=== PATIENT | female | born 1945 | race Caucasian/White ===

== ENCOUNTER → 2018-05-20 | Outpatient (CLI) | payer MEDICARE ==
--- NOTE | 2018-05-20 13:28 | US ---
EXAMINATION TYPE: US kidneys/renal and bladder DATE OF EXAM: 05/20/2018 COMPARISON: NONE CLINICAL HISTORY: N28.89 Disorder of Kidney. EXAM MEASUREMENTS: Right Kidney: 12.6 x 5.0 x 5.0 cm Left Kidney: 11.8 x 5.6 x 4.9 cm Patient of large body habitus. Right Kidney: echogenic foci noted, multiple small calculi Left Kidney: No hydronephrosis or masses seen Bladder: wnl, somewhat limited views due to large panis There is no evidence for hydronephrosis at this point in time. No nephrolithiasis is seen. No juvencio s are identified. The urinary bladder is anechoic. IMPRESSION: Multiple punctate nonobstructing right renal calculi. No hydronephrosis of either kidney or left-side d hydronephrosis.
== END | disposition home or self-care (01) ==
LOC: RADUSWWP 12:01
PROVIDERS: ATTEND Family Medicine
DX: N20.0 Calculus of kidney (principal)
CPT/HCPCS: 76770

== ENCOUNTER → 2018-05-29 | Outpatient (CLI) | payer MEDICARE ==
--- NOTE | 2018-05-30 13:17 | MM ---
Reason for exam: screening (asymptomatic). Last mammogram was performed 3 years and 2 months ago. History: Patient is postmenopausal and has history of endometrial cancer at age 49. Took estrogen for 2 years. Physical Findings: A clinical breast exam by your physician is recommended on an annual basis and results should be correlated with mammographic findings. MG 3D Screening Mammo W/Cad Bilateral CC and MLO view(s) were taken. Prior study comparison: April 08, 2015, bilateral MG screening mammo w CAD. September 14, 2013, bilateral digital screening mammo w/CAD. There are scattered fibroglandular densities. Stable benign calcifications. There is no discrete abnormality. No significant changes when compared with prior studies. ASSESSMENT: Benign, BI-RAD 2 RECOMMENDATION: Routine screening mammogram of both breasts in 1 year.
== END | disposition home or self-care (01) ==
LOC: RADMAMWWP 08:32
PROVIDERS: ATTEND Family Medicine
DX: Z12.31 Encounter for screening mammogram for malignant neoplasm of breast (principal)
CPT/HCPCS: 77063; 77067

== ENCOUNTER 2018-07-10 07:27 | Day surgery (SDC) | payer MEDICARE ==
[2018-07-08 15:20] VITALS: BMI 36.3
[~2018-07-10 07:27] MED LIST: LACTATED RINGERS 1,000 ML IV SCH
[2018-07-10 08:07] VITALS: RESP 16; TEMP 97.8
[2018-07-10 08:08] LABS: Glucose,Whole Blood 143 mg/dL (75-99)
[2018-07-10] MEDS ORDERED: LIDOCAINE 1% INJ 10MG/ML (20 ML MDV) ONE (08:35)
[2018-07-10] MEDS ORDERED: PROPOFOL 10 MG/ML 20 ML VIAL IV ONE (08:35)
--- NOTE | 2018-07-10 09:21 | P.PCN ---
Date of Procedure: 07/10/18 Procedure(s) Performed: Procedure: Colonoscopy and biopsy and polypectomy. Preoperative diagnosis: Positive cologuard test and change in bowel habits. Postoperative diagnosis: 1. Diverticulosis with no evidence of acute diverticulitis or strictures. 2. Multiple polyps snared including a flat spread spread out polyp in the rectum close to the anorectal junction which was removed with the snare piecemeal. Preparation: HalfLytely prep. Sedation: Was provided by anesthesia. Brief clinical history: The patient is 72-year-old female who is scheduled for this evaluation because of finding of positive cologuard test. The patient had a colonoscopy more than 15 years ago. In addition, she reports episodes of loose stool after eating certain foods that seems to be getting more often lately. This evaluation is to assess for neoplasia or other pathology. Procedure: With the patient on her left lateral decubitus position and after informed consent and adequate sedation, the perianal area was inspected and it did not show any fissures or fistulas. There were no definite masses felt on digital rectal examination. The Olympus CFH 190L video colonoscope was then inserted in the rectum in the usual fashion and advanced to the cecum. There was occasional diverticular orifices seen in the sigmoid and on the right side with no evidence of acute diverticulitis or strictures. I obtained a right colon biopsies because of her loose stools. There was a small polyp around the splenic flexure which was snared and retrieved by suction. There was another polyp measuring between 1 and 1.5 cm in the rectum close to the colorectal junction which was snared and retrieved by suctioning it to the tip of the endoscope then withdrawing the endoscope and restarting the exam. In addition, there was a flat spread out polypoid area in the rectum close to the anorectal junction which I snared and incompletely removed piecemeal with the snare. No other polyps or cancer was seen. I retroflexed the endoscope in the rectum before the endoscope was withdrawn. The patient tolerated the procedure well. Plan: I summarized the findings to the patient. I would await pathology results and plan further action including possible argon plasma coagulation of the flat rectal polyp depending on the pathology results. I will keep you updated on her progress.
[2018-07-10 09:25] VITALS: BP 125/79; PULSE 71
== END 2018-07-10 09:49 | disposition home or self-care (01) ==
LOC: ORWHC2ENDO 07:27
DX: D12.3 Benign neoplasm of transverse colon (principal); D12.8 Benign neoplasm of rectum; K57.30 Diverticulosis of large intestine without perforation or abscess without bleeding; K63.5 Polyp of colon; R19.5 Other fecal abnormalities; E11.9 Type 2 diabetes mellitus without complications; I10 Essential (primary) hypertension; Z79.84 Long term (current) use of oral hypoglycemic drugs; Z79.899 Other long term (current) drug therapy
CPT/HCPCS: 88305; 88342; 88341; 45380; 45385; J2001; J2704

== ENCOUNTER → 2018-08-30 | Outpatient (CLI) | payer MEDICARE ==
--- NOTE | 2018-09-02 07:33 | PE ---
Nuclear medicine PET/CT HISTORY: Lymphoma, initial Patient received 15.6 mCi F-18 FDG intravenously in delayed scanning was performed from skull base to the mid thighs. An attenuation correction CT, localization CT scan was also performed. DLP 452.55 mG y centimeters No comparisons. CHEST: There is no evident adenopathy. No suspicious hypermetabolic uptake. No evident lung mass. No endobronchial lesion, pleural or pericardial effusion. There are coronary artery calcifications. Prob able mitral annular calcification. Small hiatal hernia suspected. Abdomen pelvis: No retroperitoneal adenopathy. No ascites. Umbilical hernia contains fat. No evident liver mass. Spleen shows a normal size. Aorta shows normal caliber. No pelvic adenopathy. Abductor mu sculature on the right shows a lipoma in the proximal right lower extremity. Bowel activity is likely physiologic. Osseous structures show sclerotic change of the sacroiliac joints, possible stress change. Facet arth ropathy noted at the lower lumbar spine. Within the soft tissue superficial to the sacrum and there i s a oval focus of low attenuation with peripheral calcification showing a nonaggressive appearance. N o suspicious hypermetabolic uptake. IMPRESSION: No suspicious hypermetabolic uptake. No evident adenopathy.
== END | disposition home or self-care (01) ==
LOC: RADPETMAIN 06:51
PROVIDERS: ATTEND Internal Medicine Hematology & Oncology
DX: C85.93 Non-Hodgkin lymphoma, unspecified, intra-abdominal lymph nodes (principal)
CPT/HCPCS: 78815; A9552

== ENCOUNTER 2018-09-04 10:32 | Day surgery (SDC) | payer MEDICARE ==
[2018-09-02 13:21] VITALS: BMI 35.9
[~2018-09-04 10:32] MED LIST changes: +LIDOCAINE 1% 20 ML VIAL (10MG/ML) FOR IV START INTRADERMA PRN; +Pre Op ABX Message 1 EACH MISC MISCELLANE ONE
[2018-09-04 11:06] VITALS: RESP 18; TEMP 97.4
[2018-09-04] MEDS ORDERED: LIDOCAINE 1% 20 ML VIAL (10MG/ML) FOR IV START INTRADERMA ONE ×2 (11:06→11:26)
[2018-09-04] MEDS ORDERED: LACTATED RINGERS 1,000 ML IV ONE ×2 (11:06)
[2018-09-04 11:26] LABS: Glucose,Whole Blood 126 mg/dL (75-99)
[2018-09-04] MEDS ORDERED: fentaNYL (PF) 50 MCG/ML 2 ML AMP ONE (11:49)
[2018-09-04] MEDS ORDERED: KETOROLAC 30 MG/ML 1 ML VIAL ONE (11:49)
[2018-09-04] MEDS ORDERED: PROPOFOL 10 MG/ML 20 ML VIAL IV ONE (11:49)
[2018-09-04 12:28] LABS: Basophils % (A) 0 %; Eosinophils # (A) 0.1 k/uL (0-0.7); Eosinophils % (A) 1 %; HCT 39.8 % (34.0-46.0); HGB 13.1 gm/dL (11.4-16.0); Lymphocytes # (A) 2.1 k/uL (1.0-4.8); Lymphocytes % (A) 31 %; MCH 30.6 pg (25.0-35.0); MCHC 32.9 g/dL (31.0-37.0); MCV 92.9 fL (80.0-100.0); Mean Platelet Volume 7.3; Monocytes % (A) 14 %; Neutrophils # (A) 3.5 k/uL (1.3-7.7); Neutrophils % (A) 52 %; Platelet Count 185 k/uL (150-450); RBC 4.28 m/uL (3.80-5.40); RDW 13.9 % (11.5-15.5); WBC 6.7 k/uL (3.8-10.6)
[2018-09-04 12:31] VITALS: BP 140/76; PULSE 66
--- NOTE | 2018-09-04 13:35 | PCN ---
PROCEDURE NOTE PROCEDURE: Bone marrow aspirate and biopsy. PREOPERATIVE DIAGNOSIS: Non-Hodgkin lymphoma. POSTOPERATIVE DIAGNOSIS: Non-Hodgkin lymphoma. ANESTHESIA: Local with IV systemic sedation. DETAILS: Utilizing sterile technique, the skin overlying the right iliac crest was prepared with Betadine and alcohol. After adequate sterile draping and local anesthesia with 1% lidocaine and systemic sedation, size 11, 4-inch Jamshidi needle was utilized to access the periosteum with ease. A total of 15 mL of aspirate were obtained. The core biopsy was not obtainable. The patient tolerated the procedure well. There was no immediate procedure related complication. TOTAL BLOOD LOSS: Less than 1 mL. RESULTS: Pending. MMODL / IJN: [id number] /
== END 2018-09-04 12:44 | disposition home or self-care (01) ==
LOC: OR 10:32
PROVIDERS: ATTEND Internal Medicine Hematology & Oncology
DX: C85.93 Non-Hodgkin lymphoma, unspecified, intra-abdominal lymph nodes (principal); I10 Essential (primary) hypertension; E11.9 Type 2 diabetes mellitus without complications; Z80.6 Family history of leukemia; Z80.1 Family history of malignant neoplasm of trachea, bronchus and lung; Z79.84 Long term (current) use of oral hypoglycemic drugs; Z79.899 Other long term (current) drug therapy
CPT/HCPCS: 85025; 38220; J3010; J1885; J2704; 38222

== ENCOUNTER 2019-01-29 07:04 | Day surgery (SDC) | payer MEDICARE ==
[2019-01-27 13:51] VITALS: BMI 36.4
[~2019-01-29 07:04] MED LIST changes: -Pre Op ABX Message 1 EACH MISC MISCELLANE ONE
[2019-01-29 07:31] VITALS: RESP 16; TEMP 97.6
[2019-01-29 07:35] LABS: Glucose,Whole Blood 124 mg/dL (75-99)
[2019-01-29] MEDS ORDERED: PROPOFOL 10 MG/ML 20 ML VIAL IV ONE (08:52)
[2019-01-29 09:46] VITALS: BP 124/76; PULSE 70
--- NOTE | 2019-01-29 14:42 | P.PCN ---
Date of Procedure: 01/29/19 Procedure(s) Performed: Procedure: Colonoscopy and polypectomy. 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 Postoperative diagnosis: 1. Diverticulosis with no evidence of acute diverticulitis or strictures. 2. A flat spread out polyp in the rectum close to the anorectal junction as previously described, incompletely removed piecemeal with the snare. Preparation: HalfLytely prep. Sedation: Was provided by anesthesia. Brief clinical history: The patient is 73-year-old female who was scheduled for colonoscopy in July 2018 because of positive cologuard test. The patient had a colonoscopy more than 15 years prior. The patient was found to have a flat spread rectal polyp close to the anorectal junction which was snared but not totally removed piece meal. That showed follicular lymphoma. The specimen was evaluated at the [facility] and was reviewed by Dr. Misti Hamilton who recommended staging. The patient was referred back to our office in November and was recommended by oncology to have repeat colonoscopy. Her bone marrow bio psy and PET scan were both negative. The patient has no bowel issues, bleeding or any other symptoms. Procedure: With the patient on her left lateral decubitus position and after informed consent and adequate sedation, the perianal area was inspected and it did not show any fissures or fistulas. There were no definite masses felt on digital rectal examination. The Olympus CFH 190L video colonoscope was then inserted in the rectum in the usual fashion and advanced to the cecum. There was occasional diverticular orifices seen in the sigmoid and on the right side with no evidence of acute diverticulitis or strictures. In addition, there was a flat spread out polypoid area in the rectum close to the anorectal junction which I snared and incompletely removed piecemeal with the snare. No other polyps or cancer was seen. I retroflexed the endoscope in the rectum before the endoscope was withdrawn. The patient tolerated the procedure well. Plan: I summarized the findings to the patient. I would await pathology results and plan further action including possible argon plasma coagulation of the flat rectal polyp depending on the pathology and oncololgy recommendations.
== END 2019-01-29 09:52 | disposition home or self-care (01) ==
LOC: ORWHC2ENDO 07:04
DX: D12.8 Benign neoplasm of rectum (principal); K57.30 Diverticulosis of large intestine without perforation or abscess without bleeding; C82.90 Follicular lymphoma, unspecified, unspecified site; E11.9 Type 2 diabetes mellitus without complications; I10 Essential (primary) hypertension; Z90.710 Acquired absence of both cervix and uterus; E07.9 Disorder of thyroid, unspecified; Z79.84 Long term (current) use of oral hypoglycemic drugs; Z79.890 Hormone replacement therapy; Z79.899 Other long term (current) drug therapy
CPT/HCPCS: 88305; 45385; J2704

== ENCOUNTER 2019-07-29 09:12 | Emergency (ER) | payer MEDICARE ==
[2019-07-29 09:29] VITALS: BP 119/83; PULSE 102; RESP 24; TEMP 99.3
[2019-07-29] MEDS ORDERED: ONDANSETRON 4 MG/2 ML VIAL IVP STA (09:35)
[2019-07-29] MEDS ORDERED: SODIUM CHLORIDE 0.9% 1,000 ML IV STA (09:35)
--- NOTE | 2019-07-29 09:46 | ED ---
General Adult HPI - General Chief complaint: Abdominal Pain Stated complaint: ABD PAIN Time Seen by Provider: 07/29/19 09:31 Source: patient Mode of arrival: ambulatory Limitations: no limitations - History of Present Illness Initial comments: Dictation was produced using [employer] dictation software. please excuse any grammatical, word or spelling errors. Chief Complaint: 73-year-old female presents with abdominal pain. History of Present Illness: She 73-year-old female she presents with migrating abdominal pain. Patient states that the pain is initially localized to her suprapubic area. States it is worse with palpation, coughing. Patient denies any nausea, vomiting or diarrhea. Denies any constitutional symptoms. States that the pain was initially suprapubic area however then migrated to the epigastric area and then the right upper quadrant area. Patient has history of hysterectomy. No other abdominal surgeries none at this time. Patient states she does have a history of diverticulosis on colonoscopy. The ROS documented in this emergency department record has been reviewed and confirmed by me. Those systems with pertinent positive or negative responses have been documented in the HPI. All other systems are other negative and/or noncontributory. PHYSICAL EXAM: General Impression: Alert and oriented x3, not in acute distress HEENT: Normocephalic atraumatic, extra-ocular movements intact, pupils equal and reactive to light bilaterally, mucous membranes moist. Cardiovascular: Heart regular rate and rhythm, S1&S2 audible, no murmurs, rubs or gallops Chest: Lungs clear to auscultation bilaterally, no rhonchi, no wheeze, no rales Abdomen: Bowel sounds present, abdomen soft, minimal tenderness diffusely: Negative rebound tenderness, negative Cruz sign, no pain at McBurney's point, no left lower quadrant abdominal pain, non-distended, no organomegaly Musculoskeletal: Pulses present and equal in all extremities, no peripheral edema Motor: no focal deficits noted Neurological: CN II-XII grossly intact, no focal motor or sensory deficits noted Skin: Intact with no visualized rashes Psych: Normal affect and mood ED course: 73-year-old female presents with abdominal pain. Vital signs upon arrival shows heart rate of 102, rest of vital signs within acceptable limits. Ambulatory evaluation obtained. Leukocytosis of 16.1. Metabolic panel is unremarkable. Urinalysis is negative. Abdominal x-rays unremarkable. Given leukocytosis CT was ordered. CT imaging shows findings of uncomplicated diverticulitis. Patient tolerating by mouth at bedside. Patient given Augmentin starter pack. Patient was given prescription. She will be on antibiotics 14 days. Return parameters discussed. Patient clear for discharge. Advised to seek medical attention if she develops fever, worsening pain or inability to tolerate by mouth. Patient understandable agreeable. - Related Data Home Medications Medication Instructions Recorded Confirmed Lisinopril-Hctz 20-12.5 mg 1 tab PO DAILY 07/08/18 01/27/19 [Zestoretic 20-12.5] metFORMIN HCL [Glucophage] 500 mg PO QAM 07/08/18 01/27/19 Levothyroxine Sodium [Synthroid] 50 mcg PO DAILY 01/27/19 01/27/19 Previous Rx's Medication Instructions Recorded Amoxicillin/Potassium Clav 1 tab PO Q12HR 14 Days #28 tab 07/29/19 [Augmentin 875-125 Tablet] Allergies Allergy/AdvReac Type Severity Reaction Status Date / Time No Known Allergies Allergy Verified 07/29/19 09:29 Review of Systems ROS Statement: Those systems with pertinent positive or pertinent negative responses have been documented in the HPI. ROS Other: All systems not noted in ROS Statement are negative. Past Medical History Past Medical History: Cancer, Diabetes Mellitus, Hypertension, Thyroid Disorder Additional Past Medical History / Comment(s): loose stools, hx gout, hx uterine cancer, lymphoma,hiatal hernia History of Any Multi-Drug Resistant Organisms: None Reported Past Surgical History: Hysterectomy, Orthopedic Surgery Additional Past Surgical History / Comment(s): luz maria carpal tunnel, fatty tumor removed from lower back Past Anesthesia/Blood Transfusion Reactions: Family History of Problems w/ Anesthesia, Motion Sickness Additional Past Anesthesia/Blood Transfusion Reaction / Comment(s): past motion sickness, son has diff coming out Past Psychological History: No Psychological Hx Reported Smoking Status: Never smoker Past Alcohol Use History: None Reported Past Drug Use History: None Reported - Past Family History Father Family Medical History: Cancer Additional Family Medical History / Comment(s): Lung cancer with mets Sister(s) Family Medical History: Cancer Additional Family Medical History / Comment(s): Leukemia Brother(s) Family Medical History: Cancer Additional Family Medical History / Comment(s): lung cancer General Exam Limitations: no limitations Course Vital Signs 07/29/19 09:24 Temperature 99.3 F Pulse Rate 102 H Respiratory 24 Rate Blood Pressure 119/83 O2 Sat by Pulse 94 L Oximetry Medical Decision Making - Lab Data Result diagrams: 07/29/19 09:45 07/29/19 09:45 Lab Results 07/29/19 07/29/19 07/29/19 Range/Units 09:45 09:45 09:45 WBC 16.1 H (3.8-10.6) k/uL RBC 4.07 (3.80-5.40) m/uL Hgb 12.8 (11.4-16.0) gm/dL Hct 37.0 (34.0-46.0) % MCV 91.0 (80.0-100.0) fL MCH 31.5 (25.0-35.0) pg MCHC 34.7 (31.0-37.0) g/dL RDW 12.9 (11.5-15.5) % Plt Count 168 (150-450) k/uL Neutrophils % 74 % Lymphocytes % 9 % Monocytes % 16 % Eosinophils % 0 % Basophils % 0 % Neutrophils # 11.9 H (1.3-7.7) k/uL Lymphocytes # 1.5 (1.0-4.8) k/uL Monocytes # 2.5 H (0-1.0) k/uL Eosinophils # 0.1 (0-0.7) k/uL Basophils # 0.0 (0-0.2) k/uL Sodium 136 L (137-145) mmol/L Potassium 4.4 (3.5-5.1) mmol/L Chloride 98 (98-107) mmol/L Carbon Dioxide 26 (22-30) mmol/L Anion Gap 12 mmol/L BUN 16 (7-17) mg/dL Creatinine 0.52 (0.52-1.04) mg/dL Est GFR (CKD-EPI)AfAm >90 (>60 ml/min/1.73 sqM) Est GFR (CKD-EPI)NonAf >90 (>60 ml/min/1.73 sqM) Glucose 172 H (74-99) mg/dL Calcium 9.7 (8.4-10.2) mg/dL Total Bilirubin 0.9 (0.2-1.3) mg/dL AST 25 (14-36) U/L ALT 16 (4-34) U/L Alkaline Phosphatase 93 (38-126) U/L Total Protein 7.7 (6.3-8.2) g/dL Albumin 4.4 (3.5-5.0) g/dL Lipase 80 (23-300) U/L Urine Color Yellow Urine Appearance Clear (Clear) Urine pH 5.5 (5.0-8.0) Ur Specific [place] 1.020 (1.001-1.035) Urine Protein Negative (Negative) Urine Glucose (UA) Negative (Negative) Urine Ketones Negative (Negative) Urine Blood Negative (Negative) Urine Nitrite Negative (Negative) Urine Bilirubin Negative (Negative) Urine Urobilinogen <2.0 (<2.0) mg/dL Ur Leukocyte Esterase Negative (Negative) Disposition Clinical Impression: Diverticulitis Disposition: HOME SELF-CARE Condition: Good Instructions (If sedation given, give patient instructions): Diverticulitis (ED) Prescriptions: Amoxicillin/Potassium Clav [Augmentin 875-125 Tablet] 1 tab PO Q12HR 14 Days #28 tab Is patient prescribed a controlled substance at d/c from ED?: No Referrals: Nadia Bañuelos MD [Primary Care Provider] - 1-2 days Time of Disposition: 12:02
[2019-07-29 10:07] LABS: Appearance,Urine Clear (Clear); Bilirubin,Urine Negative (Negative); Blood,Urine Negative (Negative); Color,Urine Yellow; Glucose,Urine (UA) Negative (Negative); Ketones,Urine Negative (Negative); Leukocyte Esterase,Urine Negative (Negative); Nitrite,Urine Negative (Negative); PH, Urine 5.5 (5.0-8.0); Protein,Urine Negative (Negative); Urobilinogen,Urine <2.0 mg/dL (<2.0)
--- NOTE | 2019-07-29 10:08 | XR ---
EXAMINATION TYPE: XR abdomen acute w cxr DATE OF EXAM: 07/29/2019 COMPARISON: NONE HISTORY: Pain TECHNIQUE: Single view of the chest and 2 views of the abdomen are submitted. FINDINGS: Single view of the chest fails demonstrate evidence for acute pulmonary disease. There is no evidence for pneumoperitoneum. The bowel gas pattern is unremarkable as there is air throughout nondilated small and large bowel. No sizeable air fluid levels.No mass effects are seen. No unusual calcifications. IMPRESSION: 1. Unremarkable study.
[2019-07-29 10:21] LABS: ALT 16 U/L (4-34); AST 25 U/L (14-36); African American GFR (CKD) >90 (>60 ml/min/1.73 sqM); Albumin 4.4 g/dL (3.5-5.0); Alkaline Phosphatase 93 U/L (38-126); Anion Gap 12 mmol/L; Blood Urea Nitrogen 16 mg/dL (7-17); Calcium 9.7 mg/dL (8.4-10.2); Carbon Dioxide 26 mmol/L (22-30); Chloride 98 mmol/L (98-107); Glucose 172 mg/dL (74-99); Non-African American GFR(CKD) >90 (>60 ml/min/1.73 sqM); Potassium 4.4 mmol/L (3.5-5.1); Sodium 136 mmol/L (137-145); Total Bilirubin 0.9 mg/dL (0.2-1.3); Total Protein 7.7 g/dL (6.3-8.2)
[2019-07-29 10:29] LABS: Basophils % (A) 0 %; Eosinophils # (A) 0.1 k/uL (0-0.7); Eosinophils % (A) 0 %; HGB 12.8 gm/dL (11.4-16.0); Lymphocytes # (A) 1.5 k/uL (1.0-4.8); Lymphocytes % (A) 9 %; MCH 31.5 pg (25.0-35.0); MCHC 34.7 g/dL (31.0-37.0); Monocytes # (A) 2.5 k/uL (0-1.0); Monocytes % (A) 16 %; Neutrophils # (A) 11.9 k/uL (1.3-7.7); Neutrophils % (A) 74 %; Platelet Count 168 k/uL (150-450); RBC 4.07 m/uL (3.80-5.40); RDW 12.9 % (11.5-15.5); WBC 16.1 k/uL (3.8-10.6)
--- NOTE | 2019-07-29 11:52 | CT ---
EXAMINATION TYPE: CT abdomen pelvis w con DATE OF EXAM: 07/29/2019 COMPARISON: None HISTORY: Abdominal pain CT DLP: 1457.4 mGycm CONTRAST: CT scan of the abdomen and pelvis is performed without Oral Contrast and with IV Contrast, patient in jected with 100 mL of Isovue 300. FINDINGS: LUNG BASES-: No visible nodule. No infiltrate. LIVER/GB: No calcified gallstones. No space occupying hepatic lesion. Biliary tree is of normal ca liber. PANCREAS: No inflammation. No distinct mass. SPLEEN: No splenic enlargement. No lesion seen. ADRENALS: No nodule. No thickening. KIDNEYS/BLADDER: No hydronephrosis. No nephrolithiasis. No distinct renal mass. Urinary bladder g rossly unremarkable. BOWEL: Thickening of the sigmoid colon with perisigmoid inflammatory change compatible with acute div erticulitis. No evidence for abscess or perforation at this time. Remaining small and large bowel are of normal caliber. GENITAL ORGANS: No gross abnormality. LYMPH NODES: No greater than 1cm abdominal or pelvic lymph nodes are appreciated. AORTA: No significant abnormality. OSSEOUS STRUCTURES: No significant abnormality is seen. OTHER: No significant additional abnormality is seen. IMPRESSION: 1. Thickening of the sigmoid colon with perisigmoid inflammatory change compatible with acute diverti culitis. No evidence for abscess or perforation at this time.
[2019-07-29] MEDS ORDERED: AMOXIC-POT CLAV 875MG STARTER 2 EACH TABLET PO STA (11:56)
== END 2019-07-29 12:57 | disposition home or self-care (01) ==
LOC: EC 09:12
DX: K57.92 Diverticulitis of intestine, part unspecified, without perforation or abscess without bleeding (principal); D72.829 Elevated white blood cell count, unspecified; E11.9 Type 2 diabetes mellitus without complications; I10 Essential (primary) hypertension; E07.9 Disorder of thyroid, unspecified; Z85.42 Personal history of malignant neoplasm of other parts of uterus; Z85.72 Personal history of non-Hodgkin lymphomas; Z87.19 Personal history of other diseases of the digestive system; Z90.710 Acquired absence of both cervix and uterus; Z79.84 Long term (current) use of oral hypoglycemic drugs; Z79.890 Hormone replacement therapy; Z79.899 Other long term (current) drug therapy; Z53.8 Procedure and treatment not carried out for other reasons
CPT/HCPCS: 36415; 80053; 83690; 85025; 81003; 74022; 74177; 99284; 96360; 96361 ×2; Q9967

== ENCOUNTER → 2019-08-27 | Outpatient (CLI) | payer MEDICARE ==
--- NOTE | 2019-08-28 11:20 | MM ---
Reason for exam: screening (asymptomatic). Last mammogram was performed 1 year and 3 months ago. History: Patient is postmenopausal and has history of endometrial cancer at age 49. Took estrogen for 2 years. Physical Findings: A clinical breast exam by your physician is recommended on an annual basis and results should be correlated with mammographic findings. MG 3D Screening Mammo W/Cad Bilateral CC and MLO view(s) were taken. Prior study comparison: May 29, 2018, bilateral MG 3d screening mammo w/cad. April 08, 2015, bilateral MG screening mammo w CAD. There are scattered fibroglandular densities. There are benign appearing round linear calcifications bilaterally. There is no discrete abnormality. ASSESSMENT: Benign, BI-RAD 2 RECOMMENDATION: Routine screening mammogram of both breasts in 1 year.
== END | disposition home or self-care (01) ==
LOC: RADMAMWWP 12:42
PROVIDERS: ATTEND Family Medicine
DX: Z12.31 Encounter for screening mammogram for malignant neoplasm of breast (principal)
CPT/HCPCS: 77063; 77067

== ENCOUNTER → 2019-09-21 | Outpatient (CLI) | payer MEDICARE ==
--- NOTE | 2019-09-22 03:14 | MR ---
EXAMINATION TYPE: MR femur/thigh RT wo/w con DATE OF EXAM: 09/21/2019 COMPARISON: None HISTORY: Palpable lump posterior mid rt thigh, hx lymphoma 2019 CONTRAST: Standard multiplanar, multisequence MRI departmental protocol utilizing 9 mL intravenous Gadavist mynor olinium contrast. There is a marker placed over the posterior mid thigh in the area of concern. The muscle bundles of t he right thigh appear intact. There is no evidence of soft tissue edema. Subcutaneous fat has normal signal pattern. The femur has normal signal pattern without focal bone destruction. There is bilatera l knee joint effusions and larger on the left side. I see no bony destructive process. Hip joint is n ot included on the exam. There is fatty tissue within the medial quadriceps muscle consistent with a intramuscular lipoma. Thi s is seen in the upper thigh. There is no pathologic enhancement. IMPRESSION: No evidence of posterior thigh mass. No fracture. Lipoma seen in the anterior upper thigh medial quad riceps muscle. Bilateral knee joint effusions.
== END | disposition home or self-care (01) ==
LOC: RADMRIMAIN 16:02
PROVIDERS: ATTEND Internal Medicine Hematology & Oncology
DX: C85.93 Non-Hodgkin lymphoma, unspecified, intra-abdominal lymph nodes (principal); D17.79 Benign lipomatous neoplasm of other sites
CPT/HCPCS: 73720; A9585

== ENCOUNTER → 2020-01-05 | Outpatient (CLI) | payer MEDICARE | END | disposition home or self-care (01) | LOC: LABWHC1 08:17 | PROVIDERS: ATTEND Internal Medicine Gastroenterology | DX: Z11.59 Encounter for screening for other viral diseases (principal) ==

== ENCOUNTER → 2020-01-06 | Day surgery (SDC) | payer MEDICARE ==
[2020-01-05 10:30] VITALS: BMI 35.9
[~2020-01-06] MED LIST changes: +LIDOCAINE 1% (10MG/ML) FOR IV START INTRADERMA PRN; -LIDOCAINE 1% 20 ML VIAL (10MG/ML) FOR IV START INTRADERMA PRN; +MIDAZOLAM 2 MG/2 ML VIAL ONE; +PROPOFOL 10 MG/ML 20 ML VIAL IV ONE
[2020-01-06 07:35] VITALS: RESP 16; TEMP 97.2
[2020-01-06 07:40] LABS: Glucose,Whole Blood 149 mg/dL (75-99)
--- NOTE | 2020-01-06 08:12 | P.PCN ---
Date of Procedure: 01/06/20 Procedure(s) Performed: BRIEF HISTORY: Patient is a 74-year-old pleasant white female scheduled for an elective colonoscopy as a part of follow-up of large distal rectal polyp diagnosed in July [address] Velazquez. Biopsies at that time revealed follicular lymphoma. Subsequently she had a repeat colonoscopy by Dr. Velazquez in January 2019 and was again was noted to have a flat polypoid area in the distal rectum just proximal to the anorectal junction which was partially removed in a piecemeal fashion and biopsies revealed villous adenoma. She is scheduled for repeat colonoscopy today for complete polypectomy. PROCEDURE PERFORMED: Colonoscopy with submucosal injection followed by piecemeal snare polypectomy and argon plasma coagulation. PREOPERATIVE DIAGNOSIS: Follow-up large distal flat rectal polyp diagnosed in July 2080. IV sedation per Anesthesia. PROCEDURE: After informed consent was obtained, the patient, was brought into the endoscopy unit. IV sedation was administered by Anesthesia under continuous monitoring. Digital rectal examination was normal. Initially the Olympus CF-160 flexible video colonoscope was then inserted in the rectum, gradually advanced into the cecum without any difficulty. Careful examination was performed as the scope was gradually being withdrawn. Ileocecal valve and the appendiceal orifice were visualized and appeared normal. Prep was excellent. Mucosa of the cecum, ascending colon, transverse colon, descending colon appeared normal. The sigmo id colon there was a 5mm polyp that was removed by snare polypectomy. In the distal rectum just proximal to the dentate line there was a 3-4 cm flat polyp identified. Initially I injected normal saline submucosally and approximately 10 mL was injected to raise the polyp. Following this, snare polypectomy and approximately 75% the polyp was removed. There was a polyp at the base could not be removed despite multiple attempts and repeat submucosal injection. At this time to perform argon plasma coagulation and all the polyp tissue was coagulated. The Retroflexion was performed in the rectum and no lesions were seen. The patient tolerated the procedure well. IMPRESSION: 3-4 cm flat distal rectal polyp just proximal to the dentate line status post submucosal injection followed by piecemeal snare polypectomy and argon plasma coagulation 5 mm sessile proximal sigmoid polyp status post snare polypectomy RECOMMENDATIONS: Findings of this examination were discussed with the patient a s well as her family. She was advised to follow with the biopsy results. She'll be seen in office in a week from now and based the biopsy results and plan a repeat sigmoidoscopy in one to 2 months to ensure complete polypectomy.
[2020-01-06 08:26] VITALS: BP 114/71; PULSE 66
== END ==
LOC: ORWHC2ENDO 06:38
PROVIDERS: ATTEND Internal Medicine Gastroenterology
DX: D12.5 Benign neoplasm of sigmoid colon (principal); D12.8 Benign neoplasm of rectum; K08.89 Other specified disorders of teeth and supporting structures; E11.9 Type 2 diabetes mellitus without complications; M10.9 Gout, unspecified; Z85.72 Personal history of non-Hodgkin lymphomas; Z79.890 Hormone replacement therapy; Z79.84 Long term (current) use of oral hypoglycemic drugs; Z79.899 Other long term (current) drug therapy; Z85.42 Personal history of malignant neoplasm of other parts of uterus; Z90.710 Acquired absence of both cervix and uterus; Z87.898 Personal history of other specified conditions
CPT/HCPCS: 88305; 45385; 45388; 45381; J2250; J2704

== ENCOUNTER → 2020-02-03 | Day surgery (SDC) | payer MEDICARE ==
[2020-02-01 13:52] VITALS: BMI 35.9
[~2020-02-03] MED LIST changes: +LIDOCAINE 1% (10MG/ML) FOR IV START INTRADERMA ONE; -LIDOCAINE 1% (10MG/ML) FOR IV START INTRADERMA PRN; -MIDAZOLAM 2 MG/2 ML VIAL ONE
[2020-02-03 07:15] VITALS: TEMP 96.6
[2020-02-03 07:49] VITALS: RESP 16
--- NOTE | 2020-02-03 07:51 | P.PCN ---
Date of Procedure: 02/03/20 Procedure(s) Performed: BRIEF HISTORY: Patient is a 71-year-old pleasant female scheduled for an elective sigmoidoscopy as a part of follow-up of large distal rectal polyp that was initially diagnosed in July 2018. Initial biopsy showed follicular lymphoma. She follows with Dr. Guevara. Her last colonoscopy in December 2019 revealed a flat 4 cm distal rectal polyp that was partially removed by snare followed by argon plasma coagulation and the biopsy revealed tubular villous adenoma. She is hence scheduled for repeat flexible sigmoidoscopy for complete polypectomy. PROCEDURE PERFORMED: Flexible sigmoidoscopy with biopsy and argon plasma coagulation PREOPERATIVE DIAGNOSIS: Follow-up rectal polyp. IV sedation per Anesthesia. PROCEDURE: After informed consent was obtained, the patient, was brought into the endoscopy unit. IV sedation was administered by Anesthesia under continuous monitoring. Digital rectal examination was normal. Initially the Olympus CF-160 flexible video colonoscope was then inserted in the rectum, gradually advanced into the splenic flexure and this examination was performed. Prep was excellent. Mucosa of the descending colon, sigmoid colon, and r proximal rectum appeared normal. In the distal rectum there was evidence of scar tissue was friable mucosa noted at the site of polypectomy but no obvious polyp identified. At this time will double biopsies were done from the friable mucosa to evaluate for any residual polyp. Following this argon plasma coag ablation was performed. Retroflexion was performed in the rectum and no lesions were seen. The patient tolerated the procedure well. IMPRESSION: Friable mucosa and scarring no residual polyp noted in the site of previous polypectomy in the distal rectum status post multiple biopsies to rule out residual polyp followed by argon plasma coagulation as described above RECOMMENDATIONS: Findings of this examination were discussed with the patient as well as a family. She was advised to follow with the biopsy results. He'll be seen in office in 2 weeks. Based on the results will consider a repeat flexible sigmoidoscopy in 3-6 months..
[2020-02-03 07:52] LABS: Glucose,Whole Blood 139 mg/dL (75-99)
[2020-02-03 08:03] LABS: Glucose,Whole Blood 138 mg/dL (75-99)
[2020-02-03 08:25] VITALS: BP 116/79; PULSE 70
== END ==
LOC: ORWHC2ENDO 06:33
PROVIDERS: ATTEND Internal Medicine Gastroenterology
DX: D12.8 Benign neoplasm of rectum (principal); E11.9 Type 2 diabetes mellitus without complications; I10 Essential (primary) hypertension; E07.9 Disorder of thyroid, unspecified; Z85.72 Personal history of non-Hodgkin lymphomas; Z79.84 Long term (current) use of oral hypoglycemic drugs; Z79.899 Other long term (current) drug therapy; Z79.890 Hormone replacement therapy; Z98.890 Other specified postprocedural states; Z90.710 Acquired absence of both cervix and uterus
CPT/HCPCS: 45346; 88305; 45331; J2704; 45330

== ENCOUNTER → 2020-05-16 | Outpatient (CLI) | payer MEDICARE ==
[2020-05-16 11:19] LABS: African American GFR (CKD) >90 (>60 ml/min/1.73 sqM); Blood Urea Nitrogen 14 mg/dL (7-17); Non-African American GFR(CKD) >90 (>60 ml/min/1.73 sqM)
--- NOTE | 2020-05-16 12:24 | CT ---
EXAMINATION TYPE: CT ChestAbdPelvis w con DATE OF EXAM: 05/16/2020 COMPARISON: 07/29/2019, PET scan 08/30/2018 HISTORY: Lymphoma, uterine cancer CT DLP: 1716.50 mGycm Automated exposure control for dose reduction was used. CONTRAST: CT scan of the chest, abdomen and pelvis is performed with Oral Contrast and with IV Contrast, patien t injected with 100 mL of Isovue 300. FINDINGS: LUNGS: Subsegmental consolidation with atelectasis. No consolidative pneumonia, pleural effusion, or pneumothorax. No sizable pulmonary nodule. MEDIASTINUM: There are no greater than 1 cm hilar or mediastinal lymph nodes. No pericardial effusi on is seen. OTHER: No additional significant abnormality is seen. LIVER/GB: No significant abnormality is appreciated. PANCREAS: No significant abnormality is seen. SPLEEN: No significant abnormality is seen. ADRENALS: No significant abnormality is seen. KIDNEYS: Hypodensities within the kidneys are subcentimeter bilaterally too small to characterize BOWEL: Small hiatal hernia. REPRODUCTIVE ORGANS: No gross abnormality seen. LYMPH NODES: No greater than 1 cm abdominal or pelvic lymph nodes are appreciated. OSSEOUS STRUCTURES: Hypertrophic and degenerative changes of the spine. Calcification is seen posteri osmin at the midthoracic level encroaching upon the thecal sac and spinal cord and appears chronic. Ma y represent calcified ligamentous change or disc. OTHER: Fat-containing periumbilical hernia. Abnormal attenuation in the subcutaneous tissues which pe ripheral calcified rim is stable from prior exam likely benign. Aorta of normal caliber. IMPRESSION: 1. No pathologic adenopathy. 2. Subcentimeter hypodensities in the kidneys too small to characterize but likely benign. 3. Fat-containing periumbilical hernia.
== END | disposition home or self-care (01) ==
LOC: RADCTMAIN 10:02
PROVIDERS: ATTEND Internal Medicine Hematology & Oncology
DX: K42.9 Umbilical hernia without obstruction or gangrene (principal); R93.421 Abnormal radiologic findings on diagnostic imaging of right kidney; R93.422 Abnormal radiologic findings on diagnostic imaging of left kidney; C85.93 Non-Hodgkin lymphoma, unspecified, intra-abdominal lymph nodes
CPT/HCPCS: 82565; 84520; 71260; 74177; 36415; Q9967

== ENCOUNTER 2020-08-17 06:40 | Day surgery (SDC) | payer MEDICARE ==
[2020-08-12 14:46] VITALS: BMI 35.9
[~2020-08-17 06:40] MED LIST changes: -LIDOCAINE 1% (10MG/ML) FOR IV START INTRADERMA ONE; -PROPOFOL 10 MG/ML 20 ML VIAL IV ONE
[2020-08-17 07:23] VITALS: TEMP 98.4
[2020-08-17] MEDS ORDERED: LIDOCAINE 1% (10MG/ML) FOR IV START INTRADERMA ONE (07:32)
[2020-08-17] MEDS ORDERED: LIDOCAINE 1% INJ 10MG/ML (20 ML MDV) ONE (07:34)
[2020-08-17] MEDS ORDERED: PROPOFOL 10 MG/ML 20 ML VIAL IV ONE (07:34)
[2020-08-17 07:47] LABS: Glucose,Whole Blood 153 mg/dL (75-99)
--- NOTE | 2020-08-17 07:52 | P.PCN ---
Date of Procedure: 08/17/20 Procedure(s) Performed: BRIEF HISTORY: Patient is a 74-year-old pleasant white female scheduled for an elective colonoscopy as a part of follow-up of large rectal polyp noted on a colonoscopy in January 2020. She had a follow-up flexible sigmoidoscopy in February 2020 and there was a 5 mm residual polyp that was removed by snare polypectomy. Patient scheduled for follow-up sigmoidoscopy again. PROCEDURE PERFORMED: Flexible sigmoidoscopy with snare polypectomy PREOPERATIVE DIAGNOSIS: Follow-up large rectal polyp. IV sedation per Anesthesia. PROCEDURE: After informed consent was obtained, the patient, was brought into the endoscopy unit. IV sedation was administered by Anesthesia under continuous monitoring. Digital rectal examination was normal. Initially the Olympus CF-160 flexible video colonoscope was then inserted in the rectum, gradually advanced into the transverse colon without any difficulty. Careful examination was performed as the scope was gradually being withdrawn. Mucosa of the splenic flexure, descending colon, sigmoid colon, appeared normal. In the distal rectum there was a 1 cm residual polyp identified that was removed by snare polypectomy. Scattered sigmoid diverticulosis seen. Retroflexion was performed in the rectum and no lesions were seen. The patient tolerated the procedure well. IMPRESSION: 1 cm broad-based residual polyp in the rectum status post polypectomy Scattered sigmoid diverticulosis RECOMMENDATIONS: Findings of this examination were discussed with the patient as well as a family. She was advised to follow with the biopsy results. She can have a repeat surveillance colonoscopy in one year..
[2020-08-17 08:16] VITALS: BP 107/67; PULSE 76; RESP 18
== END 2020-08-17 08:41 | disposition home or self-care (01) ==
LOC: ORWHC2ENDO 06:40
PROVIDERS: ATTEND Internal Medicine Gastroenterology
DX: D12.8 Benign neoplasm of rectum (principal); K57.30 Diverticulosis of large intestine without perforation or abscess without bleeding; I10 Essential (primary) hypertension; E11.9 Type 2 diabetes mellitus without complications; E07.9 Disorder of thyroid, unspecified; Z79.890 Hormone replacement therapy; Z79.84 Long term (current) use of oral hypoglycemic drugs; Z79.899 Other long term (current) drug therapy; Z90.710 Acquired absence of both cervix and uterus; Z96.652 Presence of left artificial knee joint
CPT/HCPCS: 45385; 88305; J2001; J2704; 45338

== ENCOUNTER → 2020-10-14 | Outpatient (CLI) | payer MEDICARE ==
--- NOTE | 2020-10-18 08:30 | MM ---
Reason for exam: screening (asymptomatic). Last mammogram was performed 1 year and 2 months ago. History: Patient is postmenopausal and has history of endometrial cancer at age 49. Benign excisional biopsy, 1999. Took estrogen for 2 years. Physical Findings: A clinical breast exam by your physician is recommended on an annual basis and results should be correlated with mammographic findings. MG 3D Screening Mammo W/Cad Bilateral CC and MLO view(s) were taken. Prior study comparison: August 27, 2019, bilateral MG 3d screening mammo w/cad. May 29, 2018, bilateral MG 3d screening mammo w/cad. There are scattered fibroglandular densities. There is chronic nodularity in the left breast. Benign secretory calcifications bilateral. No significant changes when compared with prior studies. ASSESSMENT: Benign, BI-RAD 2 RECOMMENDATION: Routine screening mammogram of both breasts in 1 year.
== END | disposition home or self-care (01) ==
LOC: RADMAMWWP 15:51
PROVIDERS: ATTEND Family Medicine
DX: Z12.31 Encounter for screening mammogram for malignant neoplasm of breast (principal)
CPT/HCPCS: 77063; 77067

== ENCOUNTER → 2021-07-25 | Outpatient (CLI) | payer MEDICARE ==
[2021-07-25 10:32] LABS: African American GFR (CKD) >90 (>60 ml/min/1.73 sqM); Blood Urea Nitrogen 13 mg/dL (7-17); Non-African American GFR(CKD) >90 (>60 ml/min/1.73 sqM)
--- NOTE | 2021-07-25 12:53 | CT ---
EXAMINATION TYPE: CT ChestAbdPelvis w con DATE OF EXAM: 07/25/2021 COMPARISON: CT May 16, 2020 and older studies including PET/CT August 30, 2018 HISTORY: Non-Hodgkin lymphoma diagnosed 2018 CT DLP: 1838.2 mGycm. Automated Exposure Control for Dose Reduction was Utilized. CONTRAST: CT scan of the thorax, abdomen and pelvis is performed with oral and with IV Contrast, patient inject ed with 100 mL of Isovue 300. FINDINGS: LUNGS: The lungs remain grossly clear, there is no concerning new Greater than 5 mm parenchymal mass or nodule identified. There is no pleural effusion or pneumothorax seen. The tracheobronchial tree is patent. MEDIASTINUM: There are no greater than 1 cm hilar or mediastinal lymph nodes. No cardiomegaly or pe ricardial effusion is seen. Coronary artery calcification is redemonstrated. Calcification at the le niharika of mitral valve again seen. LIVER/GB: Liver remains diffusely low dense consistent with diffuse fatty infiltration. PANCREAS: No significant abnormality is seen. SPLEEN: No significant abnormality is seen. ADRENALS: No significant abnormality is seen. KIDNEYS: Symmetric cortical medullary uptake and excretion without hydronephrosis seen bilaterally. O ccasional subcentimeter lesion in both kidneys too small to further characterize presumed benign is r edemonstrated. BOWEL: Oral contrast reaches level of the sigmoid rectal colon. No suspicious small or large bowel di latation. Normal contrast-filled appendix from cecum. GENITAL ORGANS: Uterus surgically absent. LYMPH NODES: No new greater than 1cm abdominal or pelvic lymph nodes are appreciated. Stable few prom inent but subcentimeter retroperitoneal lymph nodes OSSEOUS STRUCTURES: Posterior calcification effacing the anterior thecal sac at roughly T9-T10 level sagittal image 71 redemonstrated. OTHER: Large fat-containing umbilical hernia. IMPRESSION: No suspicious new mass or adenopathy to suggest neoplastic lymphoma recurrence. No signi ficant change from most recent CT.
== END | disposition home or self-care (01) ==
LOC: RADCTMAIN 09:48
PROVIDERS: ATTEND Internal Medicine Hematology & Oncology
DX: Z03.89 Encounter for observation for other suspected diseases and conditions ruled out (principal); C85.93 Non-Hodgkin lymphoma, unspecified, intra-abdominal lymph nodes
CPT/HCPCS: 82565; 84520; 71260; 74177; 36415; Q9967

== ENCOUNTER → 2022-04-27 | Outpatient (CLI) | payer MEDICARE ==
--- NOTE | 2022-04-30 08:34 | MM ---
Reason for Exam: Screening (asymptomatic). Last mammogram was performed 1 year(s) and 6 month(s) ago. Patient History: Menarche at age 12. First Full-Term at age 22. Left ovary removed at age 49. Right ovary removed at age 49. Hysterectomy at age 49. Postmenopausal. Endometrial cancer, age 49. Patient used Estrogen for 2 years. Benign Excisional Biopsy. Risk Values: Sharon 5 year model risk: 2.1%. NCI Lifetime model risk: 4.4%. Prior Study Comparison: 05/29/2018 Bilateral Screening Mammogram, [facility]. 08/27/2019 Bilateral Screening Mammogram, [facility]. 10/14/2020 Bilateral Screening Mammogram, [facility]. Tissue Density: There are scattered fibroglandular densities. Findings: Analyzed By CAD. Benign-appearing linear calcifications throughout both breasts are redemonstrated. There is no suspicious group of microcalcifications or new suspicious mass in either breast. Overall Assessment: Benign, BI-RAD 2 Management: Screening Mammogram of both breasts in 1 year. A clinical breast exam by your physician is recommended on an annual basis and results should be correlated with mammographic findings. Electronically signed and approved by: Tuan Avila M.D.
== END | disposition home or self-care (01) ==
LOC: RADMAMWWP 08:03
PROVIDERS: ATTEND Family Medicine
DX: Z12.31 Encounter for screening mammogram for malignant neoplasm of breast (principal)
CPT/HCPCS: 77063; 77067

== ENCOUNTER → 2022-07-05 | Outpatient (CLI) | payer MEDICARE ==
[2022-07-05 12:38] LABS: African American GFR (CKD) >90 (>60 ml/min/1.73 sqM); Blood Urea Nitrogen 14 mg/dL (7-17); Non-African American GFR(CKD) >90 (>60 ml/min/1.73 sqM)
--- NOTE | 2022-07-05 13:50 | CT ---
EXAMINATION TYPE: CT ChestAbdPelvis w con DATE OF EXAM: 07/05/2022 COMPARISON: 07/25/2021 HISTORY: f/u lymphoma CT DLP: 1858 mGycm CONTRAST: CT scan of the chest, abdomen and pelvis is performed with Oral Contrast and with IV Contrast, patien t injected with 70cc mL of Isovue 300. CT Chest: LUNGS: The lungs are clear and free of infiltrate or atelectasis. No pulmonary nodule or mass is det ected. No pleural effusion or CT evidence of interstitial lung disease. MEDIASTINUM: Thoracic aorta is of normal caliber. The heart is not enlarged. No evidence for media stinal mass or adenopathy. HILAR STRUCTURES: No evidence for mass. No hilar adenopathy is appreciated. OTHER: No significant abnormality. CONTRAST CT ABDOMEN AND PELVIS FINDINGS: LIVER/GB: No calcified gallstones. No space occupying hepatic lesion. Biliary tree is of normal ca liber. PANCREAS: No inflammation. No distinct mass. SPLEEN: No splenic enlargement. No lesion seen. ADRENALS: No nodule. No thickening. KIDNEYS/BLADDER: No hydronephrosis. No nephrolithiasis. No distinct renal mass. BOWEL: Normal appendix. Normal bowel caliber. No inflammation. GENITAL ORGANS: Hysterectomy changes. LYMPH NODES: No greater than 1cm abdominal or pelvic lymph nodes are appreciated. AORTA: No significant abnormality. OSSEOUS STRUCTURES: No significant abnormality is seen. OTHER: Fat-containing umbilical hernia. IMPRESSION: 1. No evidence for lymphoma recurrence. No adenopathy present.
== END | disposition home or self-care (01) ==
LOC: RADCTMAIN 11:32
PROVIDERS: ATTEND Internal Medicine Hematology & Oncology
DX: C85.93 Non-Hodgkin lymphoma, unspecified, intra-abdominal lymph nodes (principal); I10 Essential (primary) hypertension; E11.9 Type 2 diabetes mellitus without complications; Z71.3 Dietary counseling and surveillance
CPT/HCPCS: 82565; 84520; 71260; 74177; 36415; Q9967

== ENCOUNTER → 2023-06-05 | Outpatient (CLI) | payer MEDICARE ==
--- NOTE | 2023-06-05 09:39 | MM ---
Reason for Exam: Screening (asymptomatic). Last mammogram was performed 1 year(s) and 2 month(s) ago. Patient History: Menarche at age 12. First Full-Term at age 22. Left ovary removed at age 49. Right ovary removed at age 49. Hysterectomy at age 49. Postmenopausal. Patient has history of breast feeding. Endometrial cancer, age 49. Patient used Estrogen for 2 years. Benign Excisional Biopsy. Risk Values: Sharon 5 year model risk: 2.0%. NCI Lifetime model risk: 4.2%. Prior Study Comparison: 08/27/2019 Bilateral Screening Mammogram, [facility]. 10/14/2020 Bilateral Screening Mammogram, [facility]. 04/27/2022 Bilateral MG 3D screening mammo w/cad, [facility]. Tissue Density: The breast tissue is heterogeneously dense. This may lower the sensitivity of mammography. Findings: Analyzed By CAD. There is no suspicious group of microcalcifications or new suspicious mass. Benign-appearing calcifications bilaterally. Overall Assessment: Benign, BI-RAD 2 Management: Screening Mammogram of both breasts in [address] [facility] will attempt to contact patient to return for supplemental views and ultrasound if indicated. Patient should continue monthly self-breast exams. A clinical breast exam by your physician is recommended on an annual basis. This exam should not preclude additional follow-up of suspicious palpable abnormalities. Note on Sharon scores and lifetime risk: 1. A Sharon score greater than 3% is considered moderate risk. If this is the case, consider specialist referral to assess eligibility for a risk reducing agent. 2. If overall lifetime risk for the development of breast cancer is 20% or higher, the patient may qualify for future screening with alternating mammogram and breast MRI. Electronically signed and approved by: Gagandeep Vivas DO
== END | disposition home or self-care (01) ==
LOC: RADMAMWWP 09:17
PROVIDERS: ATTEND Family Medicine
DX: Z12.31 Encounter for screening mammogram for malignant neoplasm of breast (principal); Z78.0 Asymptomatic menopausal state
CPT/HCPCS: 77063; 77067

== ENCOUNTER → 2023-07-11 | Outpatient (CLI) | payer MEDICARE ==
--- NOTE | 2023-07-12 08:19 | CT ---
EXAMINATION TYPE: CT ChestAbdPelvis wo con DATE OF EXAM: 07/11/2023 INDICATION: Nonhodgkins lymphoma COMPARISON: 07/05/2022, 07/25/2021 CT DLP: 1379.0 mGycm CONTRAST: Performed with Oral Contrast. No intravenous contrast. TECHNIQUE: Axial images at 5 mm thick sections. Reconstructed images in the coronal plane. FINDINGS: CT CHEST: Portion of the thyroid visualized is normal. No suspicious lung nodules or focal infiltrates are present. No enlarged mediastinal or hilar adenopathy is evident. The ascending aorta diameter at the level of the main pulmonary artery is 3.0 cm. The main pulmonary artery diameter at the bifurcation is 2.9 cm. Coronary artery calcifications present. Some valve romi cification is present. CT ABDOMEN: Liver: Normal Spleen: Normal Pancreas: Normal Adrenal glands: The adrenal glands are normal. Gallbladder: Normal Kidneys: No masses are evident. No hydronephrosis is present. No cysts are present. No renal stone s are evident. Aorta: Vascular calcification is within the aorta. Inferior vena cava: Normal. CT PELVIS: There is an anterior abdominal wall hernia with an opening of 2.9 cm containing mesenteric fat. No loops of bowel are involved. Loops of bowel within the abdomen and pelvis are normal. There are loops of bowel which are incom pletely distended or lack oral contrast limiting their evaluation. Appendix: Normal as visualized. Urinary bladder: Normal. Genitourinary structures: Uterus and ovaries are not identified. Osseous structures: No suspicious lytic or sclerotic lesions. Lymphadenopathy: No suspicious axillary adenopathy. No suspicious enlarged mediastinal or hilar adeno sam. Couple of small retrocaval lymph nodes are present. Small periaortic lymph nodes are scattere d within the abdomen. Additional small scattered mesenteric lymphadenopathy is present. No enlarged i liac chain lymphadenopathy evident. Couple of inguinal lymph nodes present. The largest on the right measures 1.0 cm. IMPRESSION: 1. 1.0 cm right inguinal lymph node. Remaining scattered adenopathy within mesenteric, periaortic and retrocaval regions appears non enlarged by CT criteria. Although slightly more prevalent lymphadenop athy with the comparison of 2020, this appears somewhat similar to the 2021 comparison. PET/CT can be performed as clinically indicated. 2. No acute CT findings.
== END | disposition home or self-care (01) ==
LOC: RADCTMAIN 13:47
PROVIDERS: ATTEND Internal Medicine Hematology & Oncology
DX: C85.93 Non-Hodgkin lymphoma, unspecified, intra-abdominal lymph nodes (principal)
CPT/HCPCS: 71250; 74176

== ENCOUNTER 2024-02-06 15:14 | Emergency (ER) | payer MEDICARE ==
--- NOTE | 2024-02-06 16:33 | XR ---
EXAMINATION TYPE: XR knee complete RT DATE OF EXAM: 02/06/2024 4:03 PM CLINICAL INDICATION:Female, 78 years old with history of pain; [facility] COMPARISON: None. TECHNIQUE: XR knee complete RT; examined in Frontal, lateral and oblique projections. FINDINGS: No evidence of any acute osseous pathology, soft tissue swelling. There is a moderate alfonso nt effusion.. Tricompartmental osteophyte formation involving the femoral condyles, tibial plateau an d patella. Mild joint space narrowing. Atherosclerosis of the arterial vasculature. A fabella is pres ent. IMPRESSION: 1. No acute osseous pathology. 2. Moderate to severe tricompartmental osteoarthritic changes. 3. Moderate joint effusion.
[2024-02-06 16:43] LABS: Basophils % (A) 0 %; Eosinophils % (A) 0 %; HCT 37.2 % (34.0-46.0); HGB 12.5 gm/dL (11.4-16.0); Lymphocytes # (A) 1.6 k/uL (1.0-4.8); Lymphocytes % (A) 13 %; MCH 30.1 pg (25.0-35.0); MCHC 33.7 g/dL (31.0-37.0); MCV 89.5 fL (80.0-100.0); Mean Platelet Volume 8.8; Monocytes # (A) 2.3 k/uL (0-1.0); Monocytes % (A) 18 %; Neutrophils # (A) 8.5 k/uL (1.3-7.7); Neutrophils % (A) 67 %; Platelet Count 136 k/uL (150-450); RBC 4.16 m/uL (3.80-5.40); RDW 13.3 % (11.5-15.5); WBC 12.6 k/uL (3.8-10.6)
[2024-02-06 16:49] VITALS: RESP 19
[2024-02-06 16:54] LABS: ALT 12 U/L (4-34); AST 21 U/L (14-36); African American GFR (CKD) >90 (>60 ml/min/1.73 sqM); Albumin 4.4 g/dL (3.5-5.0); Alkaline Phosphatase 105 U/L (38-126); Anion Gap 10 mmol/L; Blood Urea Nitrogen 16 mg/dL (7-17); C Reactive Protein 4.9 mg/dL (<1.0); Calcium 9.4 mg/dL (8.4-10.2); Carbon Dioxide 26 mmol/L (22-30); Chloride 99 mmol/L (98-107); Glucose 188 mg/dL (74-99); Non-African American GFR(CKD) 88 (>60 ml/min/1.73 sqM); Potassium 4.1 mmol/L (3.5-5.1); Sodium 135 mmol/L (137-145); Total Bilirubin 0.8 mg/dL (0.2-1.3)
--- NOTE | 2024-02-06 16:54 | ED ---
General Adult HPI - General Chief complaint: Skin/Abscess/Foreign Body Stated complaint: R knee pain Time Seen by Provider: 02/06/24 15:28 Source: patient, RN notes reviewed Mode of arrival: ambulatory Limitations: no limitations - History of Present Illness Initial comments: 78-year-old female presents to the emergency department for evaluation of right knee pain. Patient states that this started on Saturday after doing a lot of gardening. She does note some swelling to the knee. Most of the pain is on the lateral aspect of the knee. She reports a history of severe arthritis of the knee. She denies any redness to the area. Denies any recent fever, chills. She is able to ambulate on it. - Related Data Home Medications Medication Instructions Recorded Confirmed Lisinopril-Hctz 20-12.5 mg 1 tab PO QAM 07/08/18 08/17/20 [Zestoretic 20-12.5] metFORMIN HCL [Glucophage] 500 mg PO QAM 07/08/18 08/17/20 Cholecalciferol [Vitamin D3 (25 5,000 unit PO DAILY 10/05/19 08/17/20 Mcg = 1000 Iu)] Levothyroxine Sodium [Synthroid] 75 mcg PO QAM 10/05/19 08/17/20 Clindamycin [Cleocin] 2 tab PO DAILY 08/17/20 08/17/20 Previous Rx's Medication Instructions Recorded Acetaminophen-Codeine 300-30mg 1 tab PO Q6H PRN 3 Days #12 tablet 02/06/24 [Tylenol w/codeine #3] Lidocaine 5% Patch [Lidoderm 5% 1 patch TOPICAL DAILY #30 patch 02/06/24 Patch] Allergies Allergy/AdvReac Type Severity Reaction Status Date / Time No Known Allergies Allergy Verified 02/06/24 15:25 Review of Systems ROS Statement: Those systems with pertinent positive or pertinent negative responses have been documented in the HPI. ROS Other: All systems not noted in ROS Statement are negative. Past Medical History Past Medical History: Cancer, Diabetes Mellitus, Hypertension, Thyroid Disorder Additional Past Medical History / Comment(s): Loose stools, hx gout, hx uterine cancer - 1994, lymphoma on previous colonoscopy, hiatal hernia. History of Any Multi-Drug Resistant Organisms: None Reported Past Surgical History: Hysterectomy, Orthopedic Surgery Additional Past Surgical History / Comment(s): Bilateral carpal tunnel, fatty tumor removed from lower back. Colonoscopy. Past Anesthesia/Blood Transfusion Reactions: Family History of Problems w/ Anesthesia, Motion Sickness Additional Past Anesthesia/Blood Transfusion Reaction / Comment(s): Past hx motion sickness, son slow to wake up. Past Psychological History: No Psychological Hx Reported Smoking Status: Never smoker - Past Family History Father Family Medical History: Cancer Additional Family Medical History / Comment(s): Lung cancer with mets. Sister(s) Family Medical History: Cancer Additional Family Medical History / Comment(s): Leukemia. Brother(s) Family Medical History: Cancer, Coronary Artery Disease (CAD) Additional Family Medical History / Comment(s): Lung cancer. General Exam Limitations: no limitations General appearance: alert, in no apparent distress Head exam: Present: atraumatic, normocephalic, normal inspection Eye exam: Present: normal appearance, PERRL, EOMI. Absent: scleral icterus, conjunctival injection, periorbital swelling Respiratory exam: Present: normal lung sounds bilaterally. Absent: respiratory distress, wheezes, rales, rhonchi, stridor Cardiovascular Exam: Present: regular rate, normal rhythm, normal heart sounds. Absent: systolic murmur, diastolic murmur, rubs, gallop, clicks Extremities exam: Present: full ROM, tenderness (medial and posterior right knee), normal capillary refill. Absent: pedal edema, joint swelling, calf tenderness Back exam: Present: normal inspection Neurological exam: Present: alert, oriented X3 Psychiatric exam: Present: normal affect, normal mood Skin exam: Present: warm, dry, intact, normal color. Absent: rash Course Vital Signs 02/06/24 02/06/24 02/06/24 15:19 16:25 17:45 Temperature 98.4 F Pulse Rate 92 96 98 Respiratory 17 19 19 Rate Blood Pressure 104/70 123/63 122/65 O2 Sat by Pulse 99 98 97 Oximetry 02/06/24 18:00 Temperature 98.2 F Pulse Rate Respiratory Rate Blood Pressure O2 Sat by Pulse Oximetry Medical Decision Making - Medical Decision Making Was pt. sent in by a medical professional or institution (, PA, CHEF PASSENGER VESSEL, urgent care, hospital, or usp...) When possible be specific @ -No Did you speak to anyone other than the patient for history (EMS, parent, family, police, friend...)? What history was obtained from this source @ -No Did you review nursing and triage notes (agree or disagree)? Why? @ -I reviewed and agree with nursing and triage notes Were old charts reviewed (outside hosp., previous admission, EMS record, old EKG, old radiological studies, urgent care reports/EKG's, usp records)? Report findings @ -No old charts were reviewed Differential Diagnosis (chest pain, altered mental status, abdominal pain women, abdominal pain men, vaginal bleeding, weakness, fever, dyspnea, syncope, headache, dizziness, GI bleed, back pain, seizure, CVA, palpatations, mental health, musculoskeletal)? @ -Differential Musculoskeletal Muscular strain, contusion, ligament sprain, fracture, arthritis, septic art hritis, bursitis, cellulitis, muscle spasm, nerve compression, DVT, arterial occlusion, herpes zoster, electrolyte abnormality, tumor.... This is not meant to be in all inclusive list EKG interpreted by me (3pts min.). @ -None X-rays interpreted by me (1pt min.). @ -X-ray of the right knee shows severe osteoarthritis with moderate joint effusion CT interpreted by me (1pt min.). @ -None done U/S interpreted by me (1pt. min.). @ -None done What testing was considered but not performed or refused? (CT, X-rays, U/S, labs)? Why? @ -None What meds were considered but not given or refused? Why? @ -None Did you discuss the management of the patient with other professionals (professionals i.e. , PA, CHEF PASSENGER VESSEL, lab, RT, psych nurse, social psychologist, nickel plater, teacher, customer service security officer, family service caseworker)? Give summary @ -No Was smoking cessation discussed for >3mins.? @ -No Was critical care preformed (if so, how long)? @ -No Were there social determinants of health that impacted care today? How? ([place] elessness, low income, unemployed, alcoholism, drug addiction, transportation, low edu. Level, literacy, decrease access to med. care, [facility], rehab)? @ -No Was there de-escalation of care discussed even if they declined (Discuss DNR or withdrawal of care, Hospice)? DNR status @ -No What co-morbidities impacted this encounter? (DM, HTN, Smoking, COPD, CAD, Cancer, CVA, ARF, Chemo, Hep., AIDS, mental health diagnosis, sleep apnea, morbid obesity)? @ -None Was patient admitted / discharged? Hospital course, mention meds given and route, prescriptions, significant lab abnormalities, going to OR and other pertinent info. @ -Discharge. Patient presented to the emergency department for evaluation of right knee pain. Patient does have history of severe osteoarthritis. Laboratory studies obtainedPatient has mild leukocytosis 12.6; CRP 4.9 likely inflammatory. There is no overlying skin changes, redness, patient has good range of motion of the knee. X-rays obtained which show severe osteoarthritis with a moderate joint effusion. Patient will be discharged home with orthopedic follow-up. She was provided medication for pain control while in the emergency department. She is understanding agreeable plan. Patient stable at time of discharge. Case discussed with Dr. Varela Undiagnosed new problem with uncertain prognosis? @ -No Drug Therapy requiring intensive monitoring for toxicity (Heparin, Nitro, Insulin, Cardizem)? @ -No Were any procedures done? @ -No Diagnosis/symptom? @ -Knee effusion Acute, or Chronic, or Acute on Chronic? @ -acute Uncomplicated (without systemic symptoms) or Complicated (systemic symptoms)? @ -uncomplicated Side effects of treatment? @ -No Exacerbation, Progression, or Severe Exacerbation? @ -No Poses a threat to life or bodily function? How? (Chest pain, [place], [place], pneumonia, PE, COPD, DKA, ARF, appy, cholecystitis, CVA, Diverticulitis, Homicidal, Suicidal, threat to staff... and all critical care pts) @ -No - Lab Data Result diagrams: 02/06/24 16:18 02/06/24 16:18 Lab Results 02/06/24 02/06/24 Range/Units 16:18 16:18 WBC 12.6 H (3.8-10.6) k/uL RBC 4.16 (3.80-5.40) m/uL Hgb 12.5 (11.4-16.0) gm/dL Hct 37.2 (34.0-46.0) % MCV 89.5 (80.0-100.0) fL MCH 30.1 (25.0-35.0) pg MCHC 33.7 (31.0-37.0) g/dL RDW 13.3 (11.5-15.5) % Plt Count 136 L (150-450) k/uL MPV 8.8 Neutrophils % 67 % Lymphocytes % 13 % Monocytes % 18 % Eosinophils % 0 % Basophils % 0 % Neutrophils # 8.5 H (1.3-7.7) k/uL Lymphocytes # 1.6 (1.0-4.8) k/uL Monocytes # 2.3 H (0-1.0) k/uL Eosinophils # 0.0 (0-0.7) k/uL Basophils # 0.0 (0-0.2) k/uL Sodium 135 L (137-145) mmol/L Potassium 4.1 (3.5-5.1) mmol/L Chloride 99 (98-107) mmol/L Carbon Dioxide 26 (22-30) mmol/L Anion Gap 10 mmol/L BUN 16 (7-17) mg/dL Creatinine 0.61 (0.52-1.04) mg/dL Est GFR (CKD-EPI)AfAm >90 (>60 ml/min/1.73 sqM) Est GFR (CKD-EPI)NonAf 88 (>60 ml/min/1.73 sqM) Glucose 188 H (74-99) mg/dL Calcium 9.4 (8.4-10.2) mg/dL Total Bilirubin 0.8 (0.2-1.3) mg/dL AST 21 (14-36) U/L ALT 12 (4-34) U/L Alkaline Phosphatase 105 (38-126) U/L C-Reactive Protein 4.9 H (<1.0) mg/dL Total Protein 7.0 (6.3-8.2) g/dL Albumin 4.4 (3.5-5.0) g/dL Disposition Clinical Impression: Osteoarthritis of right knee, Knee effusion Disposition: HOME SELF-CARE Condition: Stable Instructions (If sedation given, give patient instructions): Osteoarthritis (ED), Swollen Knee Joint (ED) Additional Instructions: You may take ibuprofen with the Tylenol #3. Please follow up with your orthopedic surgeon. Return to the emergency department for new or worsening symptoms. Prescriptions: Lidocaine 5% Patch [Lidoderm 5% Patch] 1 patch TOPICAL DAILY #30 patch Acetaminophen-Codeine 300-30mg [Tylenol w/codeine #3] 1 tab PO Q6H PRN 3 Days #12 tablet PRN Reason: Pain Is patient prescribed a controlled substance at d/c from ED?: Yes When asked, does pt state using other controlled substances?: No If prescribed controlled substance>3 days was MAPS reviewed?: Prescribed <3 Days Referrals: Nadia Bañuelos MD [Primary Care Provider] - 1-2 days
[2024-02-06 17:47] VITALS: BP 122/65; PULSE 98
[2024-02-06] MEDS: KETOROLAC 15 MG/ML 1 ML VIAL IVP STA (17:48)
[2024-02-06] MEDS: HYDROmorphone 0.5 MG/0.5 ML SYRINGE IVP STA (17:49)
[2024-02-06] MEDS: LIDOCAINE 4% PATCH TOPICAL ONE (17:50)
[2024-02-06] MEDS: ACET/COD 300 MG/30 MG STARTER PACK 6 TAB BTL PO STA (17:50)
[2024-02-06 18:10] VITALS: TEMP 98.2
== END 2024-02-06 18:10 | disposition home or self-care (01) ==
LOC: EC 15:14
DX: M17.11 Unilateral primary osteoarthritis, right knee (principal); M25.461 Effusion, right knee
CPT/HCPCS: 36415; 80053; 85025; 86140; 73562; 99284; 96374; 96375; J1885; J1170

== ENCOUNTER 2024-04-21 09:44 | Inpatient (IN) | payer MEDICARE ==
--- NOTE | 2024-04-21 10:11 | ED ---
Extremity Problem HPI - General Chief complaint: Extremity Problem,Nontraumatic Stated complaint: arm pain Time Seen by Provider: 04/21/24 09:53 Source: patient, RN notes reviewed Mode of arrival: EMS Limitations: no limitations - History of Present Illness Initial comments: This is a 78-year-old female who presents to the emergency department for right arm pain and swelling. States that a couple of days ago she developed pain to the right elbow. It then started to travel down to the hand and wrist. She has a history of gout, most recently in the knee. However, states that she has never gotten it in the upper extremity before. Also states that she started to develop nausea and vomiting and feels sick to her stomach, which has never happened with a gout flare before. Denies any injuries or history of joint infections. She has not measured any fevers or chills at home. Range of motion very limited due to her pain. She was given Morphine by EMS en route with some improvement in her pain. MD Complaint: extremity pain - Related Data Home Medications Medication Instructions Recorded Confirmed Lisinopril-Hctz 20-12.5 mg 1 tab PO DAILY 07/08/18 04/21/24 [Zestoretic 20-12.5] Levothyroxine Sodium [Synthroid] 75 mcg PO HS 10/05/19 04/21/24 Cholecalciferol [Vitamin D3 (125 125 mcg PO DAILY 04/21/24 04/21/24 Mcg = 5000 Iu)] Semaglutide [Ozempic] 2 mg SQ ELIAS 04/21/24 04/21/24 Allergies Allergy/AdvReac Type Severity Reaction Status Date / Time No Known Allergies Allergy Verified 04/21/24 10:01 Review of Systems ROS Statement: Those systems with pertinent positive or pertinent negative responses have been documented in the HPI. ROS Other: All systems not noted in ROS Statement are negative. Past Medical History Past Medical History: Cancer, Diabetes Mellitus, Hypertension, Thyroid Disorder Additional Past Medical History / Comment(s): Loose stools, hx gout, hx uterine cancer - 1994, lymphoma on previous colonoscopy, hiatal hernia. History of Any Multi-Drug Resistant Organisms: None Reported Past Surgical History: Hysterectomy, Orthopedic Surgery Additional Past Surgical History / Comment(s): Bilateral carpal tunnel, fatty tumor removed from lower back. Colonoscopy. Past Anesthesia/Blood Transfusion Reactions: Family History of Problems w/ Anesthesia, Motion Sickness Additional Past Anesthesia/Blood Transfusion Reaction / Comment(s): Past hx motion sickness, son slow to wake up. Past Psychological History: No Psychological Hx Reported Smoking Status: Never smoker - Past Family History Father Family Medical History: Cancer Additional Family Medical History / Comment(s): Lung cancer with mets. Sister(s) Family Medical History: Cancer Additional Family Medical History / Comment(s): Leukemia. Brother(s) Family Medical History: Cancer, Coronary Artery Disease (CAD) Additional Family Medical History / Comment(s): Lung cancer. General Exam Limitations: no limitations General appearance: alert, in no apparent distress Head exam: Present: atraumatic, normocephalic, normal inspection Respiratory exam: Present: normal lung sounds bilaterally. Absent: respiratory distress, wheezes, rales, rhonchi, stridor Extremities exam: Present: other (Tenderness and mild to moderate swelling to the right elbow tracking down to the hand and wrist. Mild overlying erythema. Range of motion limited by pain. 2+ radial pulses.) Neurological exam: Present: alert, oriented X3, CN II-XII intact Psychiatric exam: Present: normal affect, normal mood Course Vital Signs 04/21/24 04/21/24 04/21/24 09:49 09:52 11:26 Temperature 99.1 F Pulse Rate 89 68 82 Respiratory 18 16 20 Rate Blood Pressure 140/76 140/70 120/60 O2 Sat by Pulse 95 98 98 Oximetry 04/21/24 13:58 Temperature 99.9 F H Pulse Rate 85 Respiratory 18 Rate Blood Pressure 125/76 O2 Sat by Pulse 97 Oximetry Medical Decision Making - Medical Decision Making This is a 78-year-old female who presents to the emergency department for right arm pain. Was pt. sent in by a medical professional or institution? @ -No Did you speak to anyone other than the patient for history? @ -No Did you review nursing and triage notes? @ -Yes, and I agree, it is accurate with regards to the patient's symptoms. Were old charts reviewed? @ -No Differential Diagnosis? @ -Differential Musculoskeletal: Muscular strain, contusion, ligament sprain, fracture, arthritis, septic arthritis, bursitis, cellulitis, muscle spasm, nerve compression, DVT, arterial occlusion, herpes zoster, electrolyte abnormality, tumor.... This is not meant to be in all inclusive list EKG interpreted by me (3pts min.)? @ -Not obtained X-rays interpreted by me (1pt min.)? @ -X-ray of the right hand, forearm, and elbow obtained. My interpretation identifies no acute fractures. CT interpreted by me (1pt min.)? @ -Not obtained U/S interpreted by me (1pt. min.)? @ -Not obtained What testing was considered but not performed? (CT, X-rays, U/S, labs)? Why? @ -None What meds were considered but not given? Why? @ -None Did you discuss the management of the patient with other professionals? @ -Yes, Dr. Ricci, who accepts the patient for admission Did you reconcile home meds? @ -Yes Was smoking cessation discussed for >3mins.? @ -No Was critical care preformed (if so, how long)? @ -No Were there social determinants of health that impacted care today? How? (Homelessness, low income, unemployed, alcoholism, drug addiction, transportation, low edu. Level, literacy, decrease access to med. care, longterm, rehab)? @ -No Was there de-escalation of care discussed even if they declined? (Discuss DNR or withdrawal of care, Hospice)? @ -No What co-morbidities impacted this encounter? (DM, HTN, Smoking, COPD, CAD, Cancer, CVA, Hep., AIDS, mental health diagnosis, sleep apnea, morbid obesity)? @ -DM, HTN Was patient admitted / discharged? @ -Admitted. Lab work demonstrates leukocytosis with a white blood cell count of 13.6. CRP elevated at 6.5. X-ray of the right hand, forearm, and elbow obtained. Aside from soft tissue swelling over the right hand, imaging was relatively unremarkable. Patient's range of motion was significantly limited and she did have fairly exquisite tenderness. She was also beginning to exhibit systemic symptoms, and there is concern for development of septic arthritis/bursitis. It would also be irregular to have gout begin in the elbow and travel distally. She also has leukocytosis and elevated inflammatory markers on lab work. Patient subsequently admitted to medicine for cellulitis of the right upper extremity with possible septic arthritis/bursitis. Blood cultures obtained. She was started on vancomycin and given a dose of cefepime. Consult placed for orthopedics and infectious disease. Case discussed with ED attending, Dr. Lindsey. Undiagnosed new problem with uncertain prognosis? @ -None Drug Therapy requiring intensive monitoring for toxicity (Heparin, Nitro, Insuli n, Cardizem)? @ -None Were any procedures done? @ -None Diagnosis/symptom? @ -Right upper extremity cellulitis, possible septic bursitis/arthritis of right upper extremity Acute, or Chronic, or Acute on Chronic? @ -Acute Uncomplicated (without systemic symptoms) or Complicated (systemic symptoms)? @ -Complicated Side effects of treatment? @ -None Exacerbation, Progression, or Severe Exacerbation] @ -Not applicable Poses a threat to life or bodily function? @ -Yes, can lead to septic shock, which can be life-threatening - Lab Data Result diagrams: 04/21/24 10:00 04/21/24 10:00 Lab Results 04/21/24 04/21/24 04/21/24 Range/Units 10:00 10:00 10:00 WBC 13.6 H (3.8-10.6) k/uL RBC 3.87 (3.80-5.40) m/uL Hgb 11.7 (11.4-16.0) gm/dL Hct 34.2 (34.0-46.0) % MCV 88.4 (80.0-100.0) fL MCH 30.2 (25.0-35.0) pg MCHC 34.1 (31.0-37.0) g/dL RDW 13.9 (11.5-15.5) % Plt Count 131 L (150-450) k/uL MPV 9.1 Neutrophils % 73 % Lymphocytes % 9 % Monocytes % 16 % Eosinophils % 1 % Basophils % 0 % Neutrophils # 10.0 H (1.3-7.7) k/uL Lymphocytes # 1.3 (1.0-4.8) k/uL Monocytes # 2.2 H (0-1.0) k/uL Eosinophils # 0.1 (0-0.7) k/uL Basophils # 0.0 (0-0.2) k/uL Sodium 136 L (137-145) mmol/L Potassium 4.5 (3.5-5.1) mmol/L Chloride 99 (98-107) mmol/L Carbon Dioxide 25 (22-30) mmol/L Anion Gap 12 mmol/L BUN 16 (7-17) mg/dL Creatinine 0.55 (0.52-1.04) mg/dL Est GFR (CKD-EPI)AfAm >90 (>60 ml/min/1.73 sqM) Est GFR (CKD-EPI)NonAf >90 (>60 ml/min/1.73 sqM) Glucose 133 H (74-99) mg/dL Plasma Lactic Acid Theo 1.3 (0.7-2.0) mmol/L Uric Acid 4.7 (3.7-7.4) mg/dL Calcium 9.4 (8.4-10.2) mg/dL Total Bilirubin 1.2 (0.2-1.3) mg/dL AST 32 (14-36) U/L ALT 12 (4-34) U/L Alkaline Phosphatase 85 (38-126) U/L C-Reactive Protein 6.5 H (<1.0) mg/dL Total Protein 7.4 (6.3-8.2) g/dL Albumin 4.6 (3.5-5.0) g/dL - Radiology Data Radiology results: report reviewed, image reviewed Disposition Clinical Impression: Right arm cellulitis, Septic joint of right elbow Disposition: ADMITTED IP TO THIS HOSP
[2024-04-21] MEDS: ONDANSETRON 4 MG/2 ML VIAL IVP STA (10:17)
[2024-04-21] MEDS: KETOROLAC 15 MG/ML 1 ML VIAL IVP STA (10:17)
[2024-04-21] MEDS: MORPHINE SULFATE 2 MG/ML SYRINGE IVP STA (10:18)
[2024-04-21 10:37] LABS: Basophils % (A) 0 %; Eosinophils # (A) 0.1 k/uL (0-0.7); Eosinophils % (A) 1 %; HCT 34.2 % (34.0-46.0); HGB 11.7 gm/dL (11.4-16.0); Lymphocytes # (A) 1.3 k/uL (1.0-4.8); Lymphocytes % (A) 9 %; MCH 30.2 pg (25.0-35.0); MCHC 34.1 g/dL (31.0-37.0); MCV 88.4 fL (80.0-100.0); Mean Platelet Volume 9.1; Monocytes # (A) 2.2 k/uL (0-1.0); Monocytes % (A) 16 %; Neutrophils % (A) 73 %; Platelet Count 131 k/uL (150-450); RBC 3.87 m/uL (3.80-5.40); RDW 13.9 % (11.5-15.5); WBC 13.6 k/uL (3.8-10.6)
[2024-04-21 10:54] LABS: ALT 12 U/L (4-34); African American GFR (CKD) >90 (>60 ml/min/1.73 sqM); Albumin 4.6 g/dL (3.5-5.0); Anion Gap 12 mmol/L; Blood Urea Nitrogen 16 mg/dL (7-17); C Reactive Protein 6.5 mg/dL (<1.0); Calcium 9.4 mg/dL (8.4-10.2); Carbon Dioxide 25 mmol/L (22-30); Chloride 99 mmol/L (98-107); Glucose 133 mg/dL (74-99); Non-African American GFR(CKD) >90 (>60 ml/min/1.73 sqM); Sodium 136 mmol/L (137-145); Total Bilirubin 1.2 mg/dL (0.2-1.3); Total Protein 7.4 g/dL (6.3-8.2); Uric Acid 4.7 mg/dL (3.7-7.4)
[2024-04-21 10:58] LABS: AST 32 U/L (14-36); Alkaline Phosphatase 85 U/L (38-126); Potassium 4.5 mmol/L (3.5-5.1)
--- NOTE | 2024-04-21 11:00 | XR ---
EXAMINATION TYPE: XR hand complete RT DATE OF EXAM: 04/21/2024 COMPARISON: None HISTORY: Pain and swelling TECHNIQUE: 3 view right hand FINDINGS: No acute displaced fractures evident. Mild degenerative joint changes are at the distal int erphalangeal joint spaces. First carpal metacarpal junction degenerative change. Mild soft tissue prominence over the index and middle fingers may be present. Soft tissue in the dors um of the wrist is present. IMPRESSION: 1. No acute osseous abnormality radiographically apparent. 2. Mild soft tissue swelling at the wrist index and middle fingers. [facility], , 04/21/2024 10:57 AM
--- NOTE | 2024-04-21 11:01 | XR ---
EXAMINATION TYPE: XR forearm RT DATE OF EXAM: 04/21/2024 COMPARISON: None HISTORY: Pain and swelling, without TECHNIQUE: 2 view right forearm FINDINGS: No acute fracture or dislocation is evident. Mild soft tissue swelling may be at the wrist. Radius aligns normally with the humerus. Anterior fat-pad is normal. No elevation posterior fat pad is evident. Follow up exams can be performed 7-10 days from acute trauma for continued pain. IMPRESSION: 1. No acute osseous abnormality right forearm. [facility], , 04/21/2024 10:59 AM
--- NOTE | 2024-04-21 11:03 | XR ---
EXAMINATION TYPE: XR elbow complete RT DATE OF EXAM: 04/21/2024 COMPARISON: None HISTORY: Gout, pain TECHNIQUE: 3 view right elbow FINDINGS: Radius aligns normally with the humerus. Anterior fat pad is normal. No elevation of information technology specialist ior fat pad is evident which is normal. Soft tissues appear markable. Follow up exams can be performe d as clinically indicated. IMPRESSION: 1. No acute osseous abnormality right elbow [facility], , 04/21/2024 11:00 AM
[2024-04-21] MEDS ORDERED: VANCOMYCIN IV PER PHARMACY 1 EACH MISC MISCELLANE PRN (11:27)
[2024-04-21] MEDS: CEFEPIME 2 GM in SODIUM CHLORIDE 0.9% 100 ML IVPB STA (11:48)
[2024-04-21] MEDS: VANCOMYCIN 1,500 MG in SODIUM CHLORIDE 0.9% 500 ML 500 ML IVPB STA (12:24)
[2024-04-21] MEDS ORDERED: NALOXONE 0.4 MG/ML 1 ML VIAL IV PRN (12:25)
[2024-04-21] MEDS ORDERED: HYDROcodone/APAP 5-325MG 1 EACH TAB PO PRN (12:25)
[2024-04-21] MEDS ORDERED: IBUPROFEN 400 MG TAB PO PRN (12:25)
[2024-04-21] MEDS ORDERED: MORPHINE SULFATE 4 MG/ML SYRINGE IV PRN (12:25)
[2024-04-21] MEDS ORDERED: KETOROLAC 15 MG/ML 1 ML VIAL IVP PRN (12:25)
[2024-04-21] MEDS ORDERED: ONDANSETRON 4 MG/2 ML VIAL IVP PRN (12:25)
[2024-04-21] MEDS ORDERED: ACETAMINOPHEN TAB 325 MG TAB PO PRN (12:25)
[2024-04-21 12:39] LABS: Glucose,Whole Blood 124 mg/dL (70-110)
--- NOTE | 2024-04-21 13:42 | P.CNOR ---
History of Present Illness - [facility] Consult date: 04/21/24 Consult reason: joint pain History of present illness: Patient is a 78-year-old female seen at bedside in the emergency department this afternoon. She is being seen in consultation for right elbow and forearm pain. She presented to the emergency department for right arm pain and swelling. She states that a couple of days ago she developed pain to the right elbow. She denies trauma or injury. She states that it then started to travel down to the hand and wrist. She has a history of gout, most recently in the knee. However, states that she has never gotten it in the upper extremity before. Also states that she started to develop nausea and vomiting and feels sick to her stomach, which has never happened with a gout flare before. Denies any injuries or history of joint infections. She denies having fever or chills. She does state the pain her symptoms have improved over the past day. She has no other complaints. Review of Systems All systems: negative Constitutional: Denies chills, Denies fever Eyes: denies blurred vision, denies pain Ears, nose, mouth and throat: Denies headache, Denies sore throat Cardiovascular: Denies chest pain, Denies shortness of breath Respiratory: Denies cough Gastrointestinal: Denies abdominal pain, Denies diarrhea, Denies nausea, Denies vomiting Genitourinary: Denies dysuria, Denies hematuria Musculoskeletal: Denies myalgias Integumentary: Denies pruritus, Denies rash Neurological: Denies numbness, Denies weakness Psychiatric: Denies anxiety, Denies depression Endocrine: Denies fatigue, Denies weight change Past Medical History Past Medical History: Cancer, Diabetes Mellitus, Hypertension, Thyroid Disorder Additional Past Medical History / Comment(s): Loose stools, hx gout, hx uterine cancer - 1994, lymphoma on previous colonoscopy, hiatal hernia. History of Any Multi-Drug Resistant Organisms: None Reported Past Surgical History: Hysterectomy, Orthopedic Surgery Additional Past Surgical History / Comment(s): Bilateral carpal tunnel, fatty tumor removed from lower back. Colonoscopy. Past Anesthesia/Blood Transfusion Reactions: Family History of Problems w/ Anesthesia, Motion Sickness Additional Past Anesthesia/Blood Transfusion Reaction / Comm: Past hx motion sickness, son slow to wake up. Past Psychological History: No Psychological Hx Reported Smoking Status: Never smoker - Past Family History Father Family Medical History: Cancer Additional Family Medical History / Comment(s): Lung cancer with mets. Sister(s) Family Medical History: Cancer Additional Family Medical History / Comment(s): Leukemia. Brother(s) Family Medical History: Cancer, Coronary Artery Disease (CAD) Additional Family Medical History / Comment(s): Lung cancer. Medications and Allergies Home Medications Medication Instructions Recorded Confirmed Type Lisinopril-Hctz 20-12.5 mg 1 tab PO DAILY 07/08/18 04/21/24 History [Zestoretic 20-12.5] Levothyroxine Sodium [Synthroid] 75 mcg PO HS 10/05/19 04/21/24 History Cholecalciferol [Vitamin D3 (125 125 mcg PO DAILY 04/21/24 04/21/24 History Mcg = 5000 Iu)] Semaglutide [Ozempic] 2 mg SQ ELIAS 04/21/24 04/21/24 History Allergies Allergy/AdvReac Type Severity Reaction Status Date / Time No Known Allergies Allergy Verified 04/21/24 10:01 Physical Examination Inspection of the right upper extremity shows no deformity. There is no erythema or effusion at the right elbow. There is mild edema at the wrist and hand. The right upper extremity including the elbow, wrist and hand are not overly hot to touch. There is no fluid collection or fluctuance appreciated. She has mild tenderness about the olecranon and elbow in general. She has mild pain with passive range of motion at the elbow with extension to 0 and flexion to 120. She is able to actively flex and extend at the elbow, wrist, hand and digits. Neurovascular status is intact with motor and sensation throughout the right upper extremity. She has a 2+ radial pulse. Less than 2-second capillary refill is present in all digits. Results X-rays of the right elbow, forearm, wrist and hand show no acute osseous a bnormality, fracture, dislocation. There is no evidence of gas or fluid collection. - Labs Labs: Abnormal Lab Results - Last 24 Hours (Table) 04/21/24 04/21/24 04/21/24 Range/Units 10:00 10:00 12:35 WBC 13.6 H (3.8-10.6) k/uL Plt Count 131 L (150-450) k/uL Neutrophils # 10.0 H (1.3-7.7) k/uL Monocytes # 2.2 H (0-1.0) k/uL Sodium 136 L (137-145) mmol/L Glucose 133 H (74-99) mg/dL POC Glucose (mg/dL) 124 H (70-110) mg/dL C-Reactive Protein 6.5 H (<1.0) mg/dL H & H 04/21/24 Range/Units 10:00 Hgb 11.7 (11.4-16.0) gm/dL Hct 34.2 (34.0-46.0) % Result Diagrams: 04/21/24 10:00 04/21/24 10:00 - Diagnostic results Elbow x-ray: report reviewed, image reviewed Assessment and Plan (1) Gout Narrative/Plan: There are no plans for immediate surgical intervention. She is currently afebrile and has a minimally elevated white blood cell count. Joint is not hot and red. She has minimal pain with range of motion of the elbow. We will initially start her on corticosteroid medicine. Continue pain management. Apply ice and elevation to the right upper extremity. We will monitor and make further recommendations as appropriate over the next 24 to 48 hours. Current Visit: Yes Status: Acute Priority: Medium Code(s): M10.9 - GOUT, UNSPECIFIED SNOMED Code(s): 41042633 (2) Right elbow pain Current Visit: Yes Status: Acute Priority: Medium Code(s): M25.521 - PAIN IN RIGHT ELBOW SNOMED Code(s): 35615854 Time with Patient: Less than 30
[2024-04-21] MEDS: methylPREDNISolone SOD SUCCI 125 MG/2 ML VIAL IV SCH (14:15)
[2024-04-21 16:55] LABS: Erythrocyte Sedimentation Rate 61 mm/Hr (0-30)
[2024-04-21 21:26] LABS: Glucose,Whole Blood 237 mg/dL (70-110)
[2024-04-21] MEDS: LEVOTHYROXINE 75 MCG TAB PO SCH (21:52)
[2024-04-21] MEDS: methylPREDNISolone SOD SUCCI 125 MG/2 ML VIAL IV ONE (21:53)
--- NOTE | 2024-04-21 22:38 | P.CONS ---
History of Present Illness - Reason for Consult Consult date: 04/21/24 Right arm cellulitis possible right septic elbow Requesting physician: Sarah Flaherty - Chief Complaint Right arm pain x few days - History of Present Illness Patient is a 78-year-old female with a past medical history significant for diabetes mellitus hypertension hypothyroidism history of gout and uterine cancer presenting to the hospital for evaluation of pain to the right arm and swelling in this patient symptom has been going on for about a day or 2 before the patient was admitted to the hospital patient mention he did not responded to the Tylenol or Aleve with concern for and she presented patient describing the pain to be mostly sharp moderate in intensity without any radiation, patient denies any history of skin breakdown or any high-grade fever and chills patient mention she did have a previous episodes of gouty arthritis and the pain felt about the same patient on presentation to the hospital did have a low-grade fever of 99.9 degrees upon hide patient was nontachycardic hypotensive or hypoxic patient did have vital of 13.6 creatinine 0.55 electrolytes has been normal liver enzymes are normal CRP 6.5 and uric acid is 4.7 did have been the x-ray of the elbow no acute bony abnormality right elbow patient was started on vancomycin and Solu-Medrol infectious he was consulted for further management concerning for right lower extremity cellulitis and possible septic arthritis Review of Systems Positive point and negatives has been mentioned in the HPI, complete review of systems was performed and all other systems are negative Past Medical History Past Medical History: Cancer, Diabetes Mellitus, Hypertension, Thyroid Disorder Additional Past Medical History / Comment(s): Loose stools, hx gout, hx uterine cancer - 1994, lymphoma on previous colonoscopy, hiatal hernia. History of Any Multi-Drug Resistant Organisms: None Reported Past Surgical History: Hysterectomy, Orthopedic Surgery Additional Past Surgical History / Comment(s): Bilateral carpal tunnel, fatty tumor removed from lower back. Colonoscopy. Past Anesthesia/Blood Transfusion Reactions: Family History of Problems w/ Anesthesia, Motion Sickness Additional Past Anesthesia/Blood Transfusion Reaction / Comm: Past hx motion sickness, son slow to wake up. Past Psychological History: No Psychological Hx Reported Smoking Status: Never smoker - Past Family History Father Family Medical History: Cancer Additional Family Medical History / Comment(s): Lung cancer with mets. Sister(s) Family Medical History: Cancer Additional Family Medical History / Comment(s): Leukemia. Brother(s) Family Medical History: Cancer, Coronary Artery Disease (CAD) Additional Family Medical History / Comment(s): Lung cancer. Medications and Allergies Home Medications Medication Instructions Recorded Confirmed Type Lisinopril-Hctz 20-12.5 mg 1 tab PO DAILY 07/08/18 04/21/24 History [Zestoretic 20-12.5] Levothyroxine Sodium [Synthroid] 75 mcg PO HS 10/05/19 04/21/24 History Cholecalciferol [Vitamin D3 (125 125 mcg PO DAILY 04/21/24 04/21/24 History Mcg = 5000 Iu)] Semaglutide [Ozempic] 2 mg SQ ELIAS 04/21/24 04/21/24 History Allergies Allergy/AdvReac Type Severity Reaction Status Date / Time No Known Allergies Allergy Verified 04/21/24 10:01 Physical Exam Vitals: Vital Signs Temp Pulse Resp BP Pulse Ox 04/21/24 11:26 82 20 120/60 98 04/21/24 09:52 68 16 140/70 98 04/21/24 09:49 99.1 F 89 18 140/76 95 Intake and Output 04/20/24 04/21/24 04/21/24 22:59 06:59 14:59 Other: Weight 76.204 kg GENERAL DESCRIPTION: Elderly female lying in bed, no distress. No tachypnea or accessory muscle of respiration use. HEENT: Shows Pallor , no scleral icterus. Oral mucous membrane is dry. No pharyngeal erythema or thrush NECK: Trachea central, no thyromegaly. LUNGS: Unlabored breathing. Clear to auscultation anteriorly. No wheeze or crackle. HEART: S1, S2, regular rate and rhythm. No loud murmur ABDOMEN: Soft, no tenderness , guarding or rigidity, no organomegaly EXTREMITIES: Right arm/elbow area with no significant swelling or redness SKIN: No rash, no masses palpable. NEUROLOGICAL: The patient is awake, alert, oriented x3, mood and affect normal. Results CBC & Chem 7: 04/21/24 10:00 04/21/24 10:00 Labs: Abnormal Lab Results - Last 24 Hours (Table) 04/21/24 04/21/24 04/21/24 Range/Units 10:00 10:00 12:35 WBC 13.6 H (3.8-10.6) k/uL Plt Count 131 L (150-450) k/uL Neutrophils # 10.0 H (1.3-7.7) k/uL Monocytes # 2.2 H (0-1.0) k/uL Sodium 136 L (137-145) mmol/L Glucose 133 H (74-99) mg/dL POC Glucose (mg/dL) 124 H (70-110) mg/dL C-Reactive Protein 6.5 H (<1.0) mg/dL Assessment and Plan (1) Right elbow pain Current Visit: Yes Status: Acute Priority: Medium Code(s): M25.521 - PAIN IN RIGHT ELBOW SNOMED Code(s): 47217982 Plan: 1patient presented to hospital with the pain to the right elbow and upper arm in this patient who did have previous history of gouty arthritis and mention the pain is similar to her previous episode patient did have a low-grade fever elevated white count however noted examination no significant swelling redness or tenderness was noticed may be dealing mostly with a cord to the right side rather than septic arthritis 2-patient was evaluated by orthopedics and recommending Solu-Medrol will see response 3-blood culture has been obtained we will check inflammatory markers and if cultures are negative would recommend discontinue vancomycin We will follow on clinical condition and cultures to further adjust medication if needed Thank you for this consultation we will follow the patient along with you Dictation was produced using [employer] dictation software. please excuse any grammatical, word or spelling errors. Time with Patient: Greater than 30
[2024-04-22] MEDS: methylPREDNISolone SOD SUCCI 125 MG/2 ML VIAL IV SCH ×2 (03:48→10:10)
[2024-04-22] MEDS: VANCOMYCIN 1,500 MG in SODIUM CHLORIDE 0.9% 500 ML 500 ML IVPB SCH (06:23)
[2024-04-22 06:37] LABS: Glucose,Whole Blood 181 mg/dL (70-110)
[2024-04-22] MEDS: INSULIN ASPART (NovoLOG) 100 UNIT/ML VIAL SQ SCH (06:49)
--- NOTE | 2024-04-22 09:49 | P.HPIM ---
History of Present Illness H&P Date: 04/22/24 Michelle Echevarria is a 78-year-old female patient who presented with concerns of right arm pain with history of gout and concerns about possible septic arthritis. Patient reports that pain started on Saturday and reports that she had increased swelling and severe pain starting at the right elbow and traveling down to her hand and wrist. Patient reports she does have a history of gout and most recently had a episode in her knee. Patient reports that the pain was so bad she started to develop nausea and vomiting patient denies any trauma to right arm. Additional medical history includes thyroid cancer, diabetes mellitus and hypertension. Hand x-ray completed showing no acute osseous abnormality. Mild soft tissue swelling. Forearm x-ray completed showing no acute osseous abnormality elbow x-ray completed showing no acute abnormality. White blood cell 13.6 ESR level 61 C-reactive protein 6.5. Uric acid 4.7. At this time patient will be admitted patient started on IV antibiotic vancomycin. Orthopedic services and infectious disease services consulted. Patient also started on IV steroids per orthopedic recommendation. At this time patient reports improvement with right arm but does report some stiffness in hand. Patient denies chest pain or shortness of breath. Patient denies nausea vomiting or diarrhea. Patient denies any urinary burning or frequency Review of Systems Please refer to HPI otherwise unremarkable Past Medical History Past Medical History: Cancer, Diabetes Mellitus, Hypertension, Thyroid Disorder Additional Past Medical History / Comment(s): Loose stools, hx gout, hx uterine cancer - 1994, lymphoma on previous colonoscopy, hiatal hernia. History of Any Multi-Drug Resistant Organisms: None Reported Past Surgical History: Hysterectomy, Orthopedic Surgery Additional Past Surgical History / Comment(s): Bilateral carpal tunnel, fatty tumor removed from lower back. Colonoscopy. Past Anesthesia/Blood Transfusion Reactions: Family History of Problems w/ Anesthesia, Motion Sickness Additional Past Anesthesia/Blood Transfusion Reaction / Comment(s): Past hx motion sickness, son slow to wake up. Past Psychological History: No Psychological Hx Reported Smoking Status: Never smoker - Past Family History Father Family Medical History: Cancer Additional Family Medical History / Comment(s): Lung cancer with mets. Sister(s) Family Medical History: Cancer Additional Family Medical History / Comment(s): Leukemia. Brother(s) Family Medical History: Cancer, Coronary Artery Disease (CAD) Additional Family Medical History / Comment(s): Lung cancer. Medications and Allergies Home Medications Medication Instructions Recorded Confirmed Type Lisinopril-Hctz 20-12.5 mg 1 tab PO DAILY 07/08/18 04/21/24 History [Zestoretic 20-12.5] Levothyroxine Sodium [Synthroid] 75 mcg PO HS 10/05/19 04/21/24 History Cholecalciferol [Vitamin D3 (125 125 mcg PO DAILY 04/21/24 04/21/24 History Mcg = 5000 Iu)] Semaglutide [Ozempic] 2 mg SQ ELIAS 04/21/24 04/21/24 History Allergies Allergy/AdvReac Type Severity Reaction Status Date / Time No Known Allergies Allergy Verified 04/21/24 10:01 Physical Exam Vitals: Vital Signs Temp Pulse Pulse Resp BP BP Pulse Ox 04/22/24 07:00 97.6 F 67 17 105/66 94 L 04/22/24 02:35 97.6 F 69 16 104/59 98 04/21/24 22:35 69 16 04/21/24 20:18 98.1 F 85 17 107/65 97 04/21/24 17:40 98.9 F 87 16 137/70 94 L 04/21/24 17:22 98.9 F 87 16 137/70 94 L 04/21/24 16:11 99.4 F 68 18 114/67 94 L 04/21/24 13:58 99.9 F H 85 18 125/76 97 04/21/24 11:26 82 20 120/60 98 04/21/24 09:52 68 16 140/70 98 04/21/24 09:49 99.1 F 89 18 140/76 95 Intake and Output 04/21/24 04/22/24 04/22/24 22:59 06:59 14:59 Intake Total 600 1900 Balance 600 1900 Intake: Oral 600 1900 Other: Voiding Method Toilet # Voids 5 Weight 76.204 kg Head normocephalic Neck supple Lungs clear to auscultation bilaterally no wheezing or crackles Heart regular rate and rhythm S1-S2, no rub or gallop Abdomen is soft nontender nondistended positive bowel sounds no hepatosplenomegaly Extremities no edema Neuro alert and orientated to 3 Results CBC & Chem 7: 04/21/24 10:00 04/21/24 10:00 Labs: Abnormal Lab Results - Last 24 Hours (Table) 04/21/24 04/21/24 04/21/24 Range/Units 10:00 10:00 12:35 WBC 13.6 H (3.8-10.6) k/uL Plt Count 131 L (150-450) k/uL Neutrophils # 10.0 H (1.3-7.7) k/uL Monocytes # 2.2 H (0-1.0) k/uL ESR 61 H (0-30) mm/Hr Sodium 136 L (137-145) mmol/L Glucose 133 H (74-99) mg/dL POC Glucose (mg/dL) 124 H (70-110) mg/dL C-Reactive Protein 6.5 H (<1.0) mg/dL 04/21/24 04/22/24 04/22/24 Range/Units 21:19 04:35 04:35 WBC (3.8-10.6) k/uL Plt Count (150-450) k/uL Neutrophils # (1.3-7.7) k/uL Monocytes # (0-1.0) k/uL ESR 62 H (0-30) mm/Hr Sodium (137-145) mmol/L Glucose (74-99) mg/dL POC Glucose (mg/dL) 237 H (70-110) mg/dL C-Reactive Protein 7.90 H (<1.0) mg/dL 04/22/24 Range/Units 06:32 WBC (3.8-10.6) k/uL Plt Count (150-450) k/uL Neutrophils # (1.3-7.7) k/uL Monocytes # (0-1.0) k/uL ESR (0-30) mm/Hr Sodium (137-145) mmol/L Glucose (74-99) mg/dL POC Glucose (mg/dL) 181 H (70-110) mg/dL C-Reactive Protein (<1.0) mg/dL Assessment and Plan Assessment: 1. Right elbow pain with concerns of possible septic arthritis 2. History of gout. Uric acid 4.7. 3. History of diabetes mellitus 4. History of uterine cancer 5. History of essential hypertension 6. History of hypothyroidism DVT prophylaxis heparin. GI prophylaxis Protonix Infectious disease and orthopedic services consulted Patient started on IV antibiotic vancomycin Maintained on IV steroids Repeat labs ordered Blood culture ordered Time with Patient: Greater than 30 (Greater than 60% of the total time spent in counseling and coordination of care)
[2024-04-22] MEDS: CHOLECALCIFEROL 125 MCG (5000 IU) TABLET PO SCH (10:10)
[2024-04-22] MEDS: LISINOPRIL-HCTZ 20-12.5 MG 1 EACH TAB PO SCH (10:10)
[2024-04-22 12:14] LABS: Glucose,Whole Blood 193 mg/dL (70-110)
[2024-04-22 16:47] LABS: Glucose,Whole Blood 232 mg/dL (70-110)
[2024-04-22 20:09] LABS: Glucose,Whole Blood 239 mg/dL (70-110)
[2024-04-22] MEDS: HEPARIN SODIUM,PORCINE 5,000 UNIT/ML 1 ML VIAL SQ SCH (20:11)
[2024-04-23 06:23] LABS: Glucose,Whole Blood 181 mg/dL (70-110)
[2024-04-23] MEDS: PANTOPRAZOLE 40 MG TABLET PO SCH (06:58)
[2024-04-23 08:44] VITALS: BP 101/63; PULSE 72; RESP 17; TEMP 98.1
[2024-04-23 08:47] LABS: Basophils # (A) 0.02 X 10*3/uL (0.00-0.10); Basophils % (A) 0.1 %; Eosinophils # (A) 0 X 10*3/uL (0.04-0.35); Eosinophils % (A) 0 %; HCT 29.4 % (37.2-46.3); HGB 10.2 g/dL (12.0-15.0); Lymphocytes # (A) 1.19 X 10*3/uL (0.90-5.00); Lymphocytes % (A) 7.7 %; MCH 31.7 pg (27.0-32.0); MCHC 34.7 g/dL (32.0-37.0); MCV 91.3 FL (80.0-97.0); Mean Platelet Volume 11.7 FL (9.5-12.2); Monocytes # (A) 0.84 X 10*3/uL (0.20-1.00); Monocytes % (A) 5.4 %; NRBC Per 100 WBC 0 X 10*3/uL (0.00-0.01); Neutrophils # (A) 13.28 X 10*3/uL (1.80-7.70); Neutrophils % (A) 85.8 %; Platelet Count 135 X 10*3/uL (140-440); RBC 3.22 X 10*6/uL (4.10-5.20); RDW 13.6 % (11.5-14.5); WBC 15.49 X 10*3/uL (4.50-10.00)
[2024-04-23 09:03] LABS: ALT 9 U/L (8-44); AST 13 U/L (13-35); Albumin 3.8 g/dL (3.8-4.9); Albumin/Globulin Ratio 1.52 Ratio (1.60-3.17); Alkaline Phosphatase 77 U/L (41-126); Carbon Dioxide 21.9 mmol/L (21.6-31.8); Chloride 105 mmol/L (96-109); Globulin 2.5 g/dL (1.6-3.3); Glucose 175 mg/dL (70-110); Potassium 3.9 mmol/L (3.5-5.5); Sodium 138 mmol/L (135-145); Total Bilirubin 0.2 mg/dL (0.3-1.2); Total Protein 6.3 g/dL (6.2-8.2)
[2024-04-23 11:46] LABS: Glucose,Whole Blood 195 mg/dL (70-110)
--- NOTE | 2024-04-23 13:11 | P.PN ---
Subjective Progress Note Date: 04/22/24 Principal diagnosis: Right elbow/upper extremity pain, gout/tenosynovitis Seen at bedside today. She states that she is Much improved today. She denies fever chills. No new complaints Objective - Vital Signs Vital signs: Vital Signs Temp 97.6 F 04/22/24 07:00 Pulse 67 04/22/24 07:00 Resp 17 04/22/24 07:00 BP 105/66 04/22/24 07:00 Pulse Ox 94 L 04/22/24 07:00 FiO2 Intake & Output 04/21/24 04/22/24 04/22/24 18:59 06:59 18:59 Intake Total 2500 120 Balance 2500 120 Weight 76.204 kg Intake: Oral 2500 120 Other: Voiding Method Toilet # Voids 5 1 - Exam Inspection and examination of right upper extremity shows no erythema. It is not hot to touch. Minimal to no tenderness. No pain with Flexion and extension of elbow. NVI - Constitutional General appearance: Present: no acute distress - Labs CBC & Chem 7: 04/23/24 05:06 04/23/24 05:06 Labs: Abnormal Lab Results - Last 24 Hours (Table) 04/21/24 04/21/24 04/22/24 Range/Units 10:00 21:19 04:35 ESR 61 H 62 H (0-30) mm/Hr POC Glucose (mg/dL) 237 H (70-110) mg/dL C-Reactive Protein (0.00-0.80) mg/dL 04/22/24 04/22/24 04/22/24 Range/Units 04:35 06:32 12:12 ESR (0-30) mm/Hr POC Glucose (mg/dL) 181 H 193 H (70-110) mg/dL C-Reactive Protein 7.90 H (0.00-0.80) mg/dL Assessment and Plan (1) Gout Narrative/Plan: Continue corticosteroids, rest, elevate, ice. May d/c and f/u as outpatient from Ortho standpoint when okay with primary team. PHX: There are no plans for immediate surgical intervention. She is currently afebri le and has a minimally elevated white blood cell count. Joint is not hot and red. She has minimal pain with range of motion of the elbow. We will initially start her on corticosteroid medicine. Continue pain management. Apply ice and elevation to the right upper extremity. We will monitor and make further recommendations as appropriate over the next 24 to 48 hours. Status: Acute Priority: Medium Code(s): M10.9 - GOUT, UNSPECIFIED SNOMED Code(s): 88507680 (2) Right elbow pain Status: Acute Priority: Medium Code(s): M25.521 - PAIN IN RIGHT ELBOW SNOMED Code(s): 48535602 Time with Patient: Less than 30
--- NOTE | 2024-04-23 16:22 | P.PN ---
Subjective Progress Note Date: 04/22/24 Principal diagnosis: Reason for follow-up is leukocytosis with possible right upper extremity cellulitis Patient is a 78-year-old female with a past medical history sign ificant for diabetes mellitus hypertension hypothyroidism history of gout and uterine cancer presenting to the hospital for evaluation of pain to the right arm and swelling with initial concern for possible cellulitis versus bursitis. On today's evaluation that is 04/22/2024,the patient denies any fever or any chills, patient is breathing comfortably on room air, the patient denies chest pain shortness of breath and no significant cough, patient denies abdominal pain, no nausea vomiting or diarrhea. Patient pain and swelling to the upper extremity has decreased in intensity. No CBC done today patient did have a sed rate of 62 CRP 7.90 0.14 cultures are pending Objective - Vital Signs Vital signs: Vital Signs Temp 97.6 F 04/22/24 07:00 Pulse 67 04/22/24 07:00 Resp 17 04/22/24 07:00 BP 105/66 04/22/24 07:00 Pulse Ox 94 L 04/22/24 07:00 FiO2 Intake & Output 04/21/24 04/22/24 04/22/24 18:59 06:59 18:59 Intake Total 2500 120 Balance 2500 120 Weight 76.204 kg Intake: Oral 2500 120 Other: Voiding Method Toilet # Voids 5 1 - Exam GENERAL DESCRIPTION: An elderly female lying in bed in no distress RESPIRATORY SYSTEM: Unlabored breathing , decreased breath sounds at bases HEART: S1 S2 regular rate and rhythm , ABDOMEN: Soft , no tenderness EXTREMITIES: Right upper extremity no significant swelling redness or drainage - Labs CBC & Chem 7: 04/23/24 05:06 04/23/24 05:06 Labs: Abnormal Lab Results - Last 24 Hours (Table) 04/21/24 04/21/24 04/21/24 Range/Units 10:00 12:35 21:19 ESR 61 H (0-30) mm/Hr POC Glucose (mg/dL) 124 H 237 H (70-110) mg/dL C-Reactive Protein (0.00-0.80) mg/dL 04/22/24 04/22/24 04/22/24 Range/Units 04:35 04:35 06:32 ESR 62 H (0-30) mm/Hr POC Glucose (mg/dL) 181 H (70-110) mg/dL C-Reactive Protein 7.90 H (0.00-0.80) mg/dL 04/22/24 Range/Units 12:12 ESR (0-30) mm/Hr POC Glucose (mg/dL) 193 H (70-110) mg/dL C-Reactive Protein (0.00-0.80) mg/dL Assessment and Plan (1) Right elbow pain Status: Acute Priority: Medium Code(s): M25.521 - PAIN IN RIGHT ELBOW SNOMED Code(s): 21569091 (2) Leukocytosis Status: Acute Code(s): D72.829 - ELEVATED WHITE BLOOD CELL COUNT, UNSPECIFIED SNOMED Code(s): 270980581 (3) Right arm cellulitis Status: Acute Code(s): L03.113 - CELLULITIS OF RIGHT UPPER LIMB SNOMED Code(s): 01073632959308093 Plan: 1patient presented to hospital with the pain to the right elbow and upper arm in this patient who did have previous history of gouty arthritis and mention the pain is similar to her previous episode patient did have a low-grade fever elevated white count however noted examination no significant swelling redness or tenderness was noticed may be dealing mostly with a cord to the right side rather than septic arthritis 2-patient was evaluated by orthopedics and has been started on Solu-Medrol patient did have elevated inflammatory marker but had normal procalcitonin 3-continue with vancomycin however culture remains to be negative we will discontinue vancomycin Dictation was produced using [employer] dictation software. please excuse any grammatical, word or spelling errors. Time with Patient: Less than 30
--- NOTE | 2024-04-23 16:24 | P.PN ---
Subjective Progress Note Date: 04/23/24 Principal diagnosis: Reason for follow-up is leukocytosis with possible right upper extremity cellulitis Patient is a 78-year-old female with a past medical history sign ificant for diabetes mellitus hypertension hypothyroidism history of gout and uterine cancer presenting to the hospital for evaluation of pain to the right arm and swelling with initial concern for possible cellulitis versus bursitis. On today's evaluation that is 04/23/2024,the patient remains to be afebrile, patient is on room air not requiring supplemental oxygen and denies any shortness of breath no chest pain or cough.Patient denies having any nausea or vomiting, no abdominal pain and no diarrhea has been reported, patient mention improvement to the right upper extremity pain and swelling she did have good mobility has been insisting on going home. Patient white count slightly up to 15.49, creatinine 0.5 blood culture has been negative Objective - Vital Signs Vital signs: Vital Signs Temp 98.1 F 04/23/24 08:00 Pulse 72 04/23/24 08:00 Resp 17 04/23/24 08:00 BP 101/63 04/23/24 08:00 Pulse Ox 96 04/23/24 08:00 FiO2 Intake & Output 04/22/24 04/23/24 04/23/24 18:59 06:59 18:59 Intake Total 120 200 Balance 120 200 Intake: Oral 120 200 Other: Voiding Method Toilet # Voids 3 1 - Exam GENERAL DESCRIPTION: An elderly female lying in bed in no distress RESPIRATORY SYSTEM: Unlabored breathing , decreased breath sounds at bases HEART: S1 S2 regular rate and rhythm , ABDOMEN: Soft , no tenderness EXTREMITIES: Right upper extremity no significant swelling redness or drainage - Labs CBC & Chem 7: 04/23/24 05:06 04/23/24 05:06 Labs: Abnormal Lab Results - Last 24 Hours (Table) 04/22/24 04/22/24 04/22/24 Range/Units 12:12 16:46 19:58 WBC (4.50-10.00) X 10*3/uL RBC (4.10-5.20) X 10*6/uL Hgb (12.0-15.0) g/dL Hct (37.2-46.3) % Plt Count (140-440) X 10*3/uL Immature Gran # (0.00-0.04) X 10*3/uL Neutrophils # (1.80-7.70) X 10*3/uL Eosinophils # (0.04-0.35) X 10*3/uL Creatinine (0.6-1.5) mg/dL BUN/Creatinine Ratio (12.00-20.00) Ratio Glucose (70-110) mg/dL POC Glucose (mg/dL) 193 H 232 H 239 H (70-110) mg/dL Total Bilirubin (0.3-1.2) mg/dL Albumin/Globulin Ratio (1.60-3.17) Ratio 04/23/24 04/23/24 04/23/24 Range/Units 05:06 05:06 06:22 WBC 15.49 H (4.50-10.00) X 10*3/uL RBC 3.22 L (4.10-5.20) X 10*6/uL Hgb 10.2 L (12.0-15.0) g/dL Hct 29.4 L (37.2-46.3) % Plt Count 135 L (140-440) X 10*3/uL Immature Gran # 0.16 H (0.00-0.04) X 10*3/uL Neutrophils # 13.28 H (1.80-7.70) X 10*3/uL Eosinophils # 0 L (0.04-0.35) X 10*3/uL Creatinine 0.5 L (0.6-1.5) mg/dL BUN/Creatinine Ratio 32.00 H (12.00-20.00) Ratio Glucose 175 H (70-110) mg/dL POC Glucose (mg/dL) 181 H (70-110) mg/dL Total Bilirubin 0.2 L (0.3-1.2) mg/dL Albumin/Globulin Ratio 1.52 L (1.60-3.17) Ratio 04/23/24 Range/Units 11:45 WBC (4.50-10.00) X 10*3/uL RBC (4.10-5.20) X 10*6/uL Hgb (12.0-15.0) g/dL Hct (37.2-46.3) % Plt Count (140-440) X 10*3/uL Immature Gran # (0.00-0.04) X 10*3/uL Neutrophils # (1.80-7.70) X 10*3/uL Eosinophils # (0.04-0.35) X 10*3/uL Creatinine (0.6-1.5) mg/dL BUN/Creatinine Ratio (12.00-20.00) Ratio Glucose (70-110) mg/dL POC Glucose (mg/dL) 195 H (70-110) mg/dL Total Bilirubin (0.3-1.2) mg/dL Albumin/Globulin Ratio (1.60-3.17) Ratio Microbiology - Last 24 Hours (Table) 04/21/24 11:44 Blood Culture - Preliminary Blood Assessment and Plan (1) Right elbow pain Status: Acute Priority: Medium Code(s): M25.521 - PAIN IN RIGHT ELBOW SNOMED Code(s): 34662940 (2) Leukocytosis Status: Acute Code(s): D72.829 - ELEVATED WHITE BLOOD CELL COUNT, UNSPECIFIED SNOMED Code(s): 495097447 (3) Right arm cellulitis Status: Acute Code(s): L03.113 - CELLULITIS OF RIGHT UPPER LIMB SNOMED Code(s): 38162054953645534 Plan: 1patient presented to hospital with the pain to the right elbow and upper arm in this patient who did have previous history of gouty arthritis and mention the pain is similar to her previous episode patient did have a low-grade fever elevated white count however noted examination no significant swelling redness or tenderness was noticed may be dealing mostly with a cord to the right side rather than septic arthritis 2-patient was evaluated by orthopedics and has been started on Solu-Medrol, patient seem to have shown clinical improvement did have elevated phlegm marker but normal procalcitonin blood culture remains to be negative as well will consider short course of oral doxycycline on discharge discussed with admitting physician, did have a slight worsening white count could be related to the steroids close patient mention she did have issues with elevated white count in the outpatient setting and was told by her oncologist not to worry about it Dictation was produced using [employer] software. please excuse any grammatical, word or spelling errors. Time with Patient: Less than 30
--- NOTE | 2024-04-23 18:16 | P.DS ---
Providers Date of admission: 04/21/24 12:35 Expected date of discharge: 04/23/24 Attending physician: Corey Ricci Consults: 04/21/24 12:25 Consult Physician Urgent Consulting Provider: Reinaldo Cruz Consult Reason/Comments: Possible septic joint, right elbow Do you want consulting provider notified?: Yes Consult Physician Urgent Consulting Provider: Tanisha Coronel Consult Reason/Comments: Right arm cellulitis, possible septic joint right elbow Do you want consulting provider notified?: Yes Primary care physician: Nadia Bañuelos Hospital Course: Diagnosis on discharge: 1. Right elbow pain with concerns of possible septic arthritis 2. History of gout. Uric acid 4.7. 3. History of diabetes mellitus 4. History of uterine cancer 5. History of essential hypertension 6. History of hypothyroidism Hospital course: Michelle Echevarria is a 78-year-old female patient who presented with concerns of right arm pain with history of gout and concerns about possible septic arthritis. Patient reports that pain started on Saturday and reports that she had increased swelling and severe pain starting at the right elbow and traveling down to her hand and wrist. Patient reports she does have a history of gout and most recently had a episode in her knee. Patient reports that the pain was so bad she started to develop nausea and vomiting patient denies any trauma to right arm. Additional medical history includes thyroid cancer, diabetes mellitus and hypertension. Hand x-ray completed showing no acute osseous abno rmality. Mild soft tissue swelling. Forearm x-ray completed showing no acute osseous abnormality elbow x-ray completed showing no acute abnormality. White blood cell 13.6 ESR level 61 C-reactive protein 6.5. Uric acid 4.7. At this time patient will be admitted patient started on IV antibiotic vancomycin. Orthopedic services and infectious disease services consulted. Patient also started on IV steroids per orthopedic recommendation. At this time patient reports improvement with right arm but does report some stiffness in hand. Patient denies chest pain or shortness of breath. Patient denies nausea vomiting or diarrhea. Patient denies any urinary burning or frequency On 04/23/2024 patient was seen and examined on the medical floor she is alert and oriented x 3 in no distress there is no fever or chills no headache or dizziness no chest pain no shortness of breath no cough no nausea or vomiting no abdominal pain no diarrhea no urinary symptoms erythema swelling and tenderness in the right arm improved significantly patient was evaluated by infectious disease and recommendation is to discharge to home on oral doxycycline for 7 more days, patient will be followed by her primary care physician Dr. Bañuelos. Plan - Discharge Summary New Discharge Prescriptions: New Doxycycline [Vibramycin] 100 mg PO BID 7 Days #14 cap Continue Lisinopril-Hctz 20-12.5 mg [Zestoretic 20-12.5] 1 tab PO DAILY Levothyroxine Sodium [Synthroid] 75 mcg PO HS Semaglutide [Ozempic] 2 mg SQ ELIAS Cholecalciferol [Vitamin D3 (125 Mcg = 5000 Iu)] 125 mcg PO DAILY Discharge Medication List Lisinopril-Hctz 20-12.5 mg [Zestoretic 20-12.5] 1 tab PO DAILY 07/08/18 [History] Levothyroxine Sodium [Synthroid] 75 mcg PO HS 10/05/19 [History] Cholecalciferol [Vitamin D3 (125 Mcg = 5000 Iu)] 125 mcg PO DAILY 04/21/24 [History] Semaglutide [Ozempic] 2 mg SQ ELIAS 04/21/24 [History] Doxycycline [Vibramycin] 100 mg PO BID 7 Days #14 cap 04/23/24 [Rx] Follow up Appointment(s)/Referral(s): Jesse Ryder PAC [[facility] [employer]] - 04/28/24 1:30 pm Nadia Bañuelos MD [Primary Care Provider] - 1-2 days (Please call office to make your appointment. Thank you.) Discharge Disposition: HOME SELF-CARE
[2024-04-24] MEDS ORDERED: VANCOMYCIN TROUGH DUE 1 EACH MISC MISCELLANE ONE (05:00)
[2024-04-26] MEDS ORDERED: NON FORMULARY DRUG (Semaglutide [Ozempic] 2 MG/0.75 ML Pen.Injctr) SQ SCH (12:27)
== END 2024-04-23 12:54 | disposition home or self-care (01) | DRG 549 ==
LOC: EC 09:44 → 4SSUR 12:35
PROVIDERS: ADMIT Internal Medicine; ATTEND Internal Medicine
DX: M00.9 Pyogenic arthritis, unspecified (principal); L03.113 Cellulitis of right upper limb; M10.9 Gout, unspecified; E03.9 Hypothyroidism, unspecified; E11.9 Type 2 diabetes mellitus without complications; I10 Essential (primary) hypertension; Z79.890 Hormone replacement therapy; Z79.85 Long-term (current) use of injectable non-insulin antidiabetic drugs; Z79.899 Other long term (current) drug therapy; Z85.850 Personal history of malignant neoplasm of thyroid; Z85.42 Personal history of malignant neoplasm of other parts of uterus; Z80.6 Family history of leukemia; Z82.49 Family history of ischemic heart disease and other diseases of the circulatory system
CPT/HCPCS: 36415; 80053; 83605; 84145; 84550; 85025; 85652; 86140; 87040; 96365; 96366; 96367; 96375; 99285

== ENCOUNTER → 2024-09-30 | Outpatient (CLI) | payer MEDICARE ==
--- NOTE | 2024-09-30 12:31 | MM ---
Reason for Exam: Screening (asymptomatic). Last mammogram was performed 1 year(s) and 3 month(s) ago. Patient History: Menarche at age 12. First Full-Term at age 22. Left ovary removed at age 49. Right ovary removed at age 49. Hysterectomy at age 49. Postmenopausal. Patient has history of breast feeding. Endometrial cancer, age 49. Patient used Estrogen for 2 years. Benign Excisional Biopsy. Risk Values: Sharon 5 year model risk: 2.0%. NCI Lifetime model risk: 3.6%. Prior Study Comparison: 10/14/2020 Bilateral Screening Mammogram, [facility]. 04/27/2022 Bilateral MG 3D screening mammo w/cad, [facility]. 06/05/2023 Bilateral MG 3D screening mammo w/cad, [facility]. Tissue Density: The breasts are almost entirely fatty. Findings: Analyzed By CAD. Right breast: There is no suspicious group of microcalcifications or new suspicious mass. Benign-appearing calcifications right breast. Left breast: There is no suspicious group of microcalcifications or new suspicious mass. Benign-appearing calcifications left breast. Overall Assessment: Benign, BI-RAD 2 Management: Screening Mammogram of both breasts in [address] [facility] will attempt to contact patient to return for supplemental views and ultrasound if indicated. Patient should continue monthly self-breast exams. A clinical breast exam by your physician is recommended on an annual basis. This exam should not preclude additional follow-up of suspicious palpable abnormalities. Note on Sharon scores and lifetime risk: 1. A Sharon score greater than 3% is considered moderate risk. If this is the case, consider specialist referral to assess eligibility for a risk reducing agent. 2. If overall lifetime risk for the development of breast cancer is 20% or higher, the patient may qualify for future screening with alternating mammogram and breast MRI. [facility], , 09/30/2024 12:28 PM. Electronically signed and approved by: Gagandeep Vivas DO
--- NOTE | 2024-10-02 09:56 | BD ---
EXAMINATION TYPE: Axial Bone Density DATE OF EXAM: 09/30/2024 CLINICAL HISTORY: 79 years old Female. ICD-10 CODE: Z78.0 ASYMP [place] , Additional History: Height: 5 ft Weight: 152 FRAX RISK QUESTIONS: Alcohol (3 or more units per day): no Family History (Parent hip fracture): no Glucocorticoids (More than 3mos): no (Ex: prednisone, prednisolone, methylprednisolone, dexamethasone, and hydrocortisone). History of Fracture in Adulthood: yes Secondary Osteoporosis: 1. Type 1 Diabetes: type 2 2. Hyperthyroidism: no 3. Menopause before 45: no 4. Malnutrition: no 5. Chronic liver disease: no Rheumatoid Arthritis: no Current Tobacco Use: no RISK FACTORS HISTORY OF: Surgery to Spine/Hip(right/left)/Wrist (right/left): carpal tunnel only luz maria wrist MEDICATIONS: Thyroid Medications: yes Which medication: levothyroxine How Long: several years Osteoporosis Medications: none EXAM MEASUREMENTS: Bone mineral densitometry was performed using the [employer] System. Bone mineral density as measured about the Lumbar spine is: ----- L1-L4(G/cm2): 1.302 T Score Values are as follows: ----- L1: 0.7 ----- L2: 0.7 ----- L3: 1.6 ----- L4: 0.9 ----- L1-L4: 1.0 Z Score Values are as follows: ----- L1: 2.3 ----- L2: 2.3 ----- L3: 3.2 ----- L4: 2.5 ----- L1-L4: 2.6 baseline Bone mineral density about the R hip (g/cm2): 1.009 Bone mineral density about the L hip (g/cm2): 1.142 T Score values are as follows: -----R Neck: -0.2 -----L Neck: 0.8 -----R Total: 0.4 -----L Total: 0.6 Z Score values are as follows: -----R Neck: 1.7 -----L Neck: 2.7 -----R Total: 2.1 -----L Total: 2.4 baseline FRAX%s: The graph provided illustrates a 12.8 % chance for a major osteoporotic fx and a 1.3 % chance for the hips probability for fx in 10 years time. IMPRESSION: Normal (Values between +1 and -1 indicate normal bone mass). Consider repeating this study in 5 year s or sooner if there is some new clinical indication. NOTE: T-SCORE=SD OF THE YOUNG ADULT MEAN. [facility], , 10/02/2024 9:54 AM
== END | disposition home or self-care (01) ==
LOC: RADMAMWWP 09:14
PROVIDERS: ATTEND Family Medicine
DX: Z12.31 Encounter for screening mammogram for malignant neoplasm of breast (principal); R92.313 Mammographic fatty tissue density, bilateral breasts; Z78.0 Asymptomatic menopausal state
CPT/HCPCS: 77063; 77067; 77080

== ENCOUNTER 2024-11-24 08:00 | Day surgery (SDC) | payer MEDICARE ==
[2024-11-18 11:58] VITALS: BMI 28.9
[~2024-11-24 08:00] MED LIST changes: -LACTATED RINGERS 1,000 ML IV SCH; +ONDANSETRON 4 MG/2 ML VIAL IVP PRN
[2024-11-24 08:25] VITALS: TEMP 96.2
[2024-11-24] MEDS: LACTATED RINGERS 1,000 ML IV SCH (08:31)
[2024-11-24 08:33] LABS: Glucose,Whole Blood 85 mg/dL (70-110)
[2024-11-24] MEDS ORDERED: PROPOFOL 10 MG/ML 20 ML VIAL IV ONE (09:06)
[2024-11-24] MEDS: IV FLUID CONTINUATION 1,000 ML IV ONE (09:06)
[2024-11-24] MEDS ORDERED: LIDOCAINE 1% INJ 10MG/ML (20 ML MDV) ONE (09:06)
--- NOTE | 2024-11-24 09:32 | P.PCN ---
Date of Procedure: 11/24/24 Procedure(s) Performed: BRIEF HISTORY: Patient is a 79-year-old pleasant white female scheduled for an elective colonoscopy as a part of screening for history of colon polyps. PROCEDURE PERFORMED: Colonoscopy with snare polypectomy PREOPERATIVE DIAGNOSIS: Screening for history of colon polyps. IV sedation per Anesthesia. PROCEDURE: After informed consent was obtained, the patient, was brought into the endoscopy unit. IV sedation was administered by Anesthesia under continuous monitoring. Digital rectal examination was normal. Initially the Olympus CF-160 flexible video colonoscope was then inserted in the rectum, gradually advanced into the cecum without any difficulty. Careful examination was performed as the scope was gradually being withdrawn. Ileocecal valve and the appendiceal orifice were visualized and appeared normal. Prep was excellent. Mucosa of the cecum, ascending colon, transverse colon appeared normal. The descending colon there was a 1 cm broad-based polyp removed by snare polypectomy. In the sigmoid colon there was another 1 cm polyp removed by snare polypectomy. In the rectum there were a total of 5 polyps all measuring between 5 to 6 mm in size removed by snare polypectomy. There is scattered sigmoid diverticulosis seen. Retroflexion was performed in the rectum and no lesions were seen. The patient tolerated the procedure well. IMPRESSION: 1 cm descending colon polyp status post polypectomy 1 cm sigmoid colon polyp status post polypectomy 5 small polyps in the rectum measuring between 5 mm to 6 mm in size polyp which were removed by snare RECOMMENDATIONS: Findings of this examination were discussed with the patient as well as her family. She was advised to follow-up with the biopsy results. Recommended repeat colonoscopy in 3 years..
[2024-11-24 09:58] VITALS: BP 117/68; PULSE 69; RESP 16
== END 2024-11-24 10:10 | disposition home or self-care (01) ==
LOC: ORWHC2ENDO 08:00
PROVIDERS: ATTEND Internal Medicine Gastroenterology
DX: Z12.11 Encounter for screening for malignant neoplasm of colon (principal); Z86.0100 Personal history of colon polyps, unspecified; K62.1 Rectal polyp; D12.5 Benign neoplasm of sigmoid colon; C85.93 Non-Hodgkin lymphoma, unspecified, intra-abdominal lymph nodes
CPT/HCPCS: 88305; 88342; 88341; 45385; J2003; J2704

== ENCOUNTER → 2025-01-28 | Outpatient (CLI) | payer MEDICARE ==
--- NOTE | 2025-01-29 16:58 | PE ---
EXAMINATION TYPE: PET CT fusion skull to thigh DATE OF EXAM: 01/28/2025 CLINICAL INDICATION:Female, 79 years old with history of C85.83; TECHNIQUE: Following the intravenous administration of 8.76 mCi of F-18 FDG, whole body images are performed from the skull base to the midthigh. Images are reviewed on the computer in the coronal, a xial, and sagittal planes. Reconstructed rotating images are created on independent workstation and reviewed on the computer. A non-contrast CT is performed in conjunction with the PET scan. Glucose level 86 mg/dL CT DLP: 688.1 mGycm, Automated exposure control for dose reduction was used. COMPARISON: CT 07/11/2023, 07/05/2022, 07/25/2021, 05/16/2020, 07/29/2019, PET/CT 09/01/2018, MRI: None FINDINGS: Mediastinal SUV mean is 1.7. Hepatic parenchyma SUV mean is 2.3. SKULL BASE AND NECK: Bilateral palatine tonsil uptake with left greater than right. Demonstrates a max SUV of 15.9 involvi ng the left palatine tonsil. And a max SUV 6.6 involving the right palatine tonsil. Previously max ELIAS V 3.0 bilaterally. New enlarged left jugular lymph node measuring up to 1.1 cm with a maximum SUV of 7.0. New enlarged FDG avid left supraclavicular lymph nodes. Example includes a left supraclavicular lymph node at the level of the thyroid gland measuring up to 1.2 cm the maximum SUV of 5.3. New asymmetrically increased radiotracer uptake within the left thyroid lobe with a maximum SUV of 7. 4. CHEST, MEDIASTINUM, AND HILAR REGION: FDG avid lymph nodes as described below: New superior mediastinal 1.9 cm FDG avid lymph node with a max SUV of 6.4. New posterior mediastinal para-aortic 1.7 cm enlarged lymph node with a maximum SUV of 5.0. ABDOMEN AND PELVIS: Multiple new enlarged lymph nodes within the abdomen and pelvis as described below: Multiple mesenteric lymph nodes with examples including an anterior epigastric mesentery 2.0 cm lymph node. Demonstrates a max SUV of 1.2 which is at background levels. Left mesenteric 1.6 cm enlarged l ymph node with a maximum SUV of 7.0. Multiple enlarged retroperitoneal periaortic and pericaval lymph nodes with example including a left para-aortic 2.7 cm lymph node with a maximum SUV of 19.2. Left periaortic 2.4 cm enlarged lymph node with a maximum SUV of 13.6. Left paracolic enlarged lymph node measuring 2.0 cm with a maximum SUV of 9.1. Central pelvic FDG avid mass measuring 7.2 x 5.5 cm. Demonstrates a maximum SUV of 22.4. This mass ab uts the sigmoid colon with loss of fat plane. Left perirectal 1.2 cm enlarged FDG avid lymph node with a maximum SUV of 8.3. Mild enlarged left inguinal lymph nodes measuring up to 1.2 cm with a maximum SUV of 7.2. MUSCULOSKELETAL STRUCTURES: No suspicious radiotracer activity. OTHER CT: Multinodular thyroid gland redemonstrated. Right thyroid lobe macrocalcification. Mild torie nary arterial calcifications. Dense mitral annulus calcifications. Small hiatal hernia. Calcified gra nuloma within the liver. Mild atherosclerotic calcification of the aorta and its branches. Scattered distal colonic diverticula without evidence for acute diverticulitis. Post hysterectomy changes. Smal l to moderate sized fat filled umbilical hernia. Multilevel degenerative changes of the spine. Binding Nicker ior sacral subcutaneous tissue calcifications likely representing calcified fat necrosis. IMPRESSION: 1. 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 Multiple enlarged FDG avid lymph nodes identified with 7.2 cm pelvic FDG avid mass. 2. Asymmetric increased radiotracer activity most prominently within the left palatine tonsil. Findi ng suggests formation/infection. Correlate clinically. 3. Asymmetrically increased radiotracer uptake within the left thyroid gland. Recommend further eval uation with our ultrasound. [facility], , 01/29/2025 4:56 PM
== END | disposition home or self-care (01) ==
LOC: RADPETMAIN 13:02
PROVIDERS: ATTEND Internal Medicine Hematology & Oncology
DX: C85.83 Other specified types of non-Hodgkin lymphoma, intra-abdominal lymph nodes (principal); R59.0 Localized enlarged lymph nodes
CPT/HCPCS: 78815; A9552